=== PATIENT | male | born 1950 | race Two or more races ===

== ENCOUNTER 2019-08-05 11:37 | Inpatient (IN) | payer MEDICARE ==
[~2019-08-05] VITALS: Ht 170.2 cm; Wt 79.8 kg
--- NOTE | 2019-08-05 11:40 | NUR ---
ED Nurse Note: Patient brought into ED from [facility] due to elevated liver enzyme. patient is alert awake, on a ventilator, RT called. primary doctor Dr. Awan sent patient to ED for evaluation. patient on a hospital gown. on a threat monitoring analyst.
[2019-08-05] MEDS ORDERED: LISINOPRIL20 MG GT (12:06)
[2019-08-05] MEDS ORDERED: ALBUTEROL2.5 MG/3 M INH (12:06)
[2019-08-05] MEDS ORDERED: CALCIUM + VITA1 EAC1 GT (12:06)
[2019-08-05] MEDS ORDERED: COLACE100 MG GT (12:06)
[2019-08-05] MEDS ORDERED: FAMOTIDINE20 MG GT (12:06)
[2019-08-05] MEDS ORDERED: LABETALOL HCL100 MG GT (12:06)
[2019-08-05] MEDS ORDERED: MULTIVITAMINS1 EAC8 GT (12:06)
[2019-08-05] MEDS ORDERED: LEVETIRACE100 MG/1 M GT (12:06)
[2019-08-05] MEDS ORDERED: DOXAZOSIN MESYLA1 MG GT (12:06)
[2019-08-05] MEDS ORDERED: AMLODIPINE BESYL5 MG GT (12:06)
[2019-08-05 12:07] VITALS: BP 115/65
--- NOTE | 2019-08-05 12:38 | NUR ---
ED Nurse Note: blood and urine sent to lab
[2019-08-05 13:02] LABS: ANION GAP 7 mmol/L (5-15); BLOOD UREA NITROGEN 14 mg/dL (7-18); CALCIUM 9.3 MG/DL (8.5-10.1); CARBON DIOXIDE 30 MMOL/L (21-32); CHLORIDE 107 MMOL/L (98-107); CREATININE 0.9 MG/DL (0.55-1.30); POTASSIUM 3.6 MMOL/L (3.5-5.1); SODIUM 144 MMOL/L (136-145)
[2019-08-05 13:05] LABS: APPEARANCE,URINE SLIGHTLY CLOUDY; BASOPHILS % (AUTO) 1.5 % (0.0-2.0); BILIRUBIN, URINE NEGATIVE (NEGATIVE); COLOR,URINE PALE YELLOW; EOSINOPHILS % (AUTO) 3.8 % (0.0-3.0); GLUCOSE, URINE (UA) NEGATIVE (NEGATIVE); HEMATOCRIT 36.7 % (42.0-52.0); KETONES,URINE NEGATIVE (NEGATIVE); LEUKOCYTE ESTERASE ,URINE 3+ (NEGATIVE); MEAN CORPUSCULAR VOLUME 91 FL (80-99); MONOCYTES % (AUTO) 10.9 % (1.0-10.0); NEUTROPHILS % (AUTO) 58.9 % (45.0-75.0); NITRITE,URINE NEGATIVE (NEGATIVE); PH,URINE 7 (4.5-8.0); PLATELET COUNT 263 K/UL (150-450); PROTEIN,URINE 2+ (NEGATIVE); RED BLOOD COUNT 4.04 M/UL (4.70-6.10); RED CELL DISTRIBUTION WIDTH 11.2 % (11.6-14.8); UROBILINOGEN,URINE NORMAL MG/DL (0.0-1.0); WHITE BLOOD COUNT 5.5 K/UL (4.8-10.8)
[2019-08-05 13:06] LABS: ALANINE AMINOTRANSFERASE 39 U/L (12-78); ALBUMIN 3.5 G/DL (3.4-5.0); ALBUMIN/GLOBULIN RATIO 0.7 (1.0-2.7); ALKALINE PHOSPHATASE 110 U/L (46-116); ASPARTATE AMINO TRANSFERASE 20 U/L (15-37); BILIRUBIN,TOTAL 0.5 MG/DL (0.2-1.0)
[2019-08-05] MEDS ORDERED: cefTRIAXone 1 GM in NS 55 ML IVPB ONE (13:30)
--- NOTE | 2019-08-05 13:52 | Diagnostic Imaging Report ---
Indication: Dyspnea Comparison: None A single view chest radiograph was obtained. Findings: There is infiltrate versus atelectasis at the left lung base silhouetting out the left hemidiaphragm. There is atelectasis at the right lung base. Pulmonary vascular prominence noted. Tracheostomy is demonstrated. Bones are osteopenic. Interposition of the hepatic flexure between the liver and diaphragm noted. IMPRESSION: Parenchymal disease at the left lung base likely infiltrate or atelectasis. Correlate clinically. Mild pulmonary vascular congestion Mild basal atelectasis Chilaiditi syndrome Osteoporosis Tracheostomy
--- NOTE | 2019-08-05 14:00 | Emergency Room Report ---
History of Present Illness General Chief Complaint: Abnormal Labs Source: Medical Record, EMS Present Illness HPI Patient is is a 69-year-old male brought in by EMS after increased abnormal labs. Patient was sent in for possible fatty liver as well as abnormal liver disease. History is markedly limited by patient's mental status and ventilator dependence. He had previous tracheostomy as well as G-tube. History is obtained from the patient's chart. Allergies: Coded Allergies: No Known Allergies (Unverified , 08/05/19) Patient History Past Medical History: see triage record Past Surgical History: other - Tracheostomy, G-tube Reviewed Nursing Documentation: PMH: Agreed; PSxH: Agreed Nursing Documentation-PMH Past Medical History: No History, Except For Hx Cardiac Problems: No - respiratory failure, encephalopathy, kidney failure, GERD Hx Hypertension: Yes Review of Systems All Other Systems: limited - Poor historian Physical Exam Vital Signs Date Time Temp Pulse Resp B/P (MAP) Pulse Ox O2 Delivery O2 Flow Rate FiO2 08/05/19 11:33 98.1 59 22 130/72 (91) 99 Mechanical Ventilator 08/05/19 11:45 30 Sp02 EP Interpretation: reviewed, normal General Appearance: normal inspection, alert, Chronically Ill Head: atraumatic ENT: normal voice, other - Tracheostomy in place Neck: normal inspection, full range of motion, supple, no bony tend Respiratory: normal inspection, lungs clear, normal breath sounds, no respiratory distress, no retraction, no wheezing Cardiovascular #1: regular rate, rhythm, no edema Gastrointestinal: normal inspection, normal bowel sounds, non tender, soft, no guarding, no hernia Genitourinary: no CVA tenderness Musculoskeletal: normal inspection, back normal, normal range of motion Neurologic: alert, director visual III-XII nml as tested, responsive, other - Tracks with eyes Psychiatric: normal inspection, judgement/insight normal, mood/affect normal Skin: no rash Medical Decision Making ER Course Patient presented for abnormal laboratory testing.Differential diagnosis include was not limited to laboratory error, sepsis, bili obstruction, gallstones among others. Because of complexity of patient's case laboratory tests and imaging studies were ordered. Patient's initial laboratory testing did not show any evidence of continued liver function test abnormalities. He was noted to have some urinary infection on laboratory testing. Patient was discussed with who requested the patient be admitted due to a urinary infection and need for further evaluation of abnormal liver tests. Last Vital Signs Date Time Temp Pulse Resp B/P (MAP) Pulse Ox O2 Delivery O2 Flow Rate FiO2 08/05/19 13:08 65 18 30 08/05/19 12:07 98.1 115/65 100 Mechanical Ventilator Status: unchanged Disposition: ADMITTED INPATIENT Condition: Stable Referrals: Dante Awan MD (PCP) George Escobar MD Aug 05, 2019 14:00
--- NOTE | 2019-08-05 15:32 | NUR ---
NURSE NOTES: RECEIVED TELEPHONE REPORT FROM RAMON MENDIETA STAFF OF ED.PT IS 77 YEARS OLD ,NON-VERBAL TRACH TO VENT ,CAME FROM [facility].PT ADMITTED WITH DX OF UTI. A WAITING FOR THE PT COME AT [facility] ROOM 239 BED 2.PLACED A TELEPHONE CALL TO DR COLIN AND LEFT A MESSAGE ON HIS EMERGENCY VOICE MAIL REGARDING PT IS ON HIS WAY TO [facility]. A WAITING FOR M.D TO CALL ME BACK.
--- NOTE | 2019-08-05 15:32 | NUR ---
ED Nurse Note: report given to Ali RN, endorsed all plan of care to Ali RN.
[2019-08-05 15:33] VITALS: BP 117/71
--- NOTE | 2019-08-05 16:00 | NUR ---
ED Nurse Note: patient transferred to 2W with all of his belongings on ACLS protocol with ANAM BUTTS.
[2019-08-05 16:46] VITALS: BP 151/90
[2019-08-05] MEDS ORDERED: Albuterol ud Inhalation HHN PRN (19:00)
--- NOTE | 2019-08-05 19:20 | NUR ---
HAND-OFF: Report given to .KATE MENDIETA
--- NOTE | 2019-08-05 19:40 | NUR ---
NURSE NOTES: Received pt from ANAM Brumfield. pt is observed in bed, eyes open, able to follow commands. denies pain at this time. trach to vent settings are as follows: Portex: 8, AC: 14, TV: 500, FiO2: 30%, PEEP: 5; tolerating well, no s/sx of respiratory distress noted at this time. G-tube site is patent and intact, clamped at this time. HOB elevated to 45 degrees. condom catheter applied to pt, draining light kristy urine. RW 20 g IV site is patent and intact, asymptomatic. bed in lowest position and locked, padded siderails up X3, call light within reach. will continue to monitor.
[2019-08-05 20:00] VITALS: BP 128/68
[2019-08-05] MEDS: levETIRAcetam 500mg/5ml Liquid GT SCH (20:37)
--- NOTE | 2019-08-05 22:19 | NUR ---
NURSE NOTES: pt's family at bedside at this time. repositioned pt, tolerated well. bilateral heels elevated with pillow support. attempted oral care, noted pt's upper and lower teeth are loose. G-tube feeding increased to 30 cc/hr as no residual noted at this time. will continue to monitor.
[2019-08-06] VITALS: BP 104/63
--- NOTE | 2019-08-06 00:30 | History and Physical Report ---
DATE OF ADMISSION: 08/05/2019 HISTORY OF PRESENT ILLNESS: The patient admitted for urinary tract infection. The patient is vent dependent. Unable to get good history from him. The patient is status post trach and PEG. Also, has elevated LFTs at the [facility]. The patient was admitted for urinary tract infection. Unable to obtain further history. PAST MEDICAL HISTORY: Respiratory insufficiency, vent dependent, constipation, BPH, GERD, hypertension, seizure disorder. PAST SURGICAL HISTORY: Trach and PEG. MEDICATIONS: Doxazosin, Colace, labetalol, lisinopril, Keppra, multivitamin, breathing treatment. ALLERGIES: No known drug allergies. FAMILY HISTORY: Not able to obtain. SOCIAL HISTORY: No history of smoking, alcohol, or illicit drugs. Comes from subacute center. REVIEW OF SYSTEMS: Unable to obtain. PHYSICAL EXAMINATION: VITAL SIGNS: Temperature is 96.4, pulse 88, blood pressure 151/90. HEENT: PERRLA. NECK: Supple. No lymphadenopathy. CHEST: Clear to auscultation. CARDIOVASCULAR: Regular rate and rhythm. No murmurs or extra sounds. GASTROINTESTINAL: Soft. Positive bowel sounds. No organomegaly. G-tube site intact. EXTREMITIES: Has 1+ edema. NEUROLOGIC: Generalized weakness. Reflexes equal on both sides. LABORATORY DATA: WBC of 5.5, hemoglobin 13, platelets 263. Sodium 144, potassium 3.6, BUN of 14, creatinine 0.9, glucose of 89. ASSESSMENT AND PLAN: 1. Urinary tract infection. 2. tracheostomy. I have asked Dr. Con Huff to see the patient. I have asked Dr. Barros to see the patient for pulmonary consult, otherwise per Dr. Con Huff. Dante Awan M.D. DR: Alessandro JOB#: [id number] CC:
[2019-08-06 04:00] VITALS: BP 107/65
[2019-08-06 04:55] LABS: HEMATOCRIT 33.8 % (42.0-52.0); HEMOGLOBIN 12.1 G/DL (14.2-18.0); LYMPHOCYTES % (AUTO) 26.3 % (20.0-45.0); MEAN CORPUSCULAR VOLUME 90 FL (80-99); MONOCYTES % (AUTO) 12.1 % (1.0-10.0); NEUTROPHILS % (AUTO) 56.6 % (45.0-75.0); PLATELET COUNT 225 K/UL (150-450); RED BLOOD COUNT 3.74 M/UL (4.70-6.10); RED CELL DISTRIBUTION WIDTH 11.2 % (11.6-14.8); WHITE BLOOD COUNT 5.6 K/UL (4.8-10.8)
[2019-08-06 05:09] LABS: ANION GAP 8 mmol/L (5-15); BLOOD UREA NITROGEN 17 mg/dL (7-18); CALCIUM 8.9 MG/DL (8.5-10.1); CARBON DIOXIDE 29 MMOL/L (21-32); CHLORIDE 108 MMOL/L (98-107); POTASSIUM 3.3 MMOL/L (3.5-5.1); SODIUM 145 MMOL/L (136-145)
--- NOTE | 2019-08-06 06:55 | NUR ---
NURSE NOTES: called and left message for Dr. Awan regarding pt's potassium level of 3.3. awaiting call back.
--- NOTE | 2019-08-06 07:00 | NUR ---
NURSE NOTES: received call back from Dr. Awan with new orders. will carry out.
--- NOTE | 2019-08-06 07:10 | NUR ---
NURSE NOTES: RECEIVED BED SIDE REPORT FROM KATE MENDIETA.RECEIVED PT WITH HOB ELEVATED 45 DEGREE AWAKE AND ALERT ABLE TO FALLOWS SIMPLE COMMANDS IN BULGARIAN.PT NON-VERBAL,TRACH TO VENT DEPENDENT.TOLERATING WELL CURRENTS VENTS SETTINGS,RENDERED TRACH CARE AND ORAL HYGIENE,LG AMT OF YELLOWISH AND WHITISH COLOR NOTED. PT WITH GT PATENT AND INTACT, RECEIVING JEVITY 1.5 @ 45CC/HRS,NO RESIDUAL NOTED AT THIS TIME.PT WITH COLUMBA CATH IN PLACE DRAINING WELL YELLOW URINE COLOR .PT REPOSITIONED IN BED TO PROVIDE COMFORT AND TO PREVENT SKIN BREAK DOWN. NO ACUTE RESP DISTRESS NOTED AT THIS TIME. WILL CONT TO MONITOR.
--- NOTE | 2019-08-06 07:15 | NUR ---
HAND-OFF: Report given to ANAM Brumfield. pt in stable condition. endorsed plan of care.
[2019-08-06 08:00] VITALS: BP 113/74
[2019-08-06] MEDS: Docusate 100mg/10ml Liq GT SCH (08:57)
[2019-08-06] MEDS: levETIRAcetam 500mg/5ml Liquid GT SCH ×2 (08:58→20:07)
[2019-08-06] MEDS: Multivitamins W/Minerals 15 ML UDC GT SCH (08:58)
[2019-08-06] MEDS: Lisinopril 20mg tab GT SCH (08:59)
[2019-08-06] MEDS: Doxazosin 1mg Tab GT SCH (09:07)
--- NOTE | 2019-08-06 10:52 | NUR ---
RD ASSESSMENT & RECOMMENDATIONS SEE CARE ACTIVITY FOR COMPLETE ASSESSMENT DAILY ESTIMATED NEEDS: Needs based on Critical care 70.5kg adj 22-28 kcals/kg 2124-5074 total kcals 1.2-2 g protein/kg 85-141 g total protein 25-30 mL/kg 6665-9305 total fluid mLs NUTRITION DIAGNOSIS: Swallowing difficulty r/t resp status as evidenced by pt is vent dep via trach, PEG dep. (CURRENT TF: Jevity 1.2 @45ml/hr) ENTERAL NUTRITION RECOMMENDATIONS: REC TO INCREASE CURRENT FEED TO -> Jevity 1.2 @60ml/hr x24 hrs to provide 1440ml, 1728 kcal, 80g pro, 1162ml free H2O - As tolerated rec to increase current to TF to goal of 60ml/hr x24 hrs - Add PROSOURCE 1 PACK DAILY (11g pro) to better meet est pro needs. - Flush per MD. HOB over 30 degrees ADDITIONAL RECOMMENDATIONS: 1) Monitor BG w/ increased TF rate 2) Lytes daily, replete as needed 3) Maintain calibrated bed scale wts for TF efficacy
--- NOTE | 2019-08-06 11:15 | Diagnostic Imaging Report ---
Indication: Abdominal pain Technique: Grayscale and duplex Doppler imaging of the abdomen performed. Comparison: None Findings: Study is significantly limited by bowel gas and a large body habitus as well as bandages associated with the gastrostomy tube. Liver is grossly unremarkable. CBD measures 3.5 mm. There are no gallstones identified. There is no hydronephrosis or ascites. Spleen is normal in size. The pancreas aorta portions of the kidneys are not evaluated well. The left lobe of the liver is not evaluated well. The main portal vein appears patent by Doppler examination. There are cysts within the right kidney. These are small measuring less than 1 cm. IMPRESSION: No acute findings appreciated. Very limited study
[2019-08-06 12:00] VITALS: BP 102/54
--- NOTE | 2019-08-06 12:54 | NUR ---
PATCHER HELPERAIR FORCE PILOT 69 YO MALE BIBA FROM [facility] TO ER CC ABNORMAL LABS ELEVATED LIVER ENZYMES SI: RESP FAILURE TRACH/VENT DEPENDENT,UTI T. 98.1 HR 59 RR 22 B/P 130/72 AC 14 TV 500 FIO2 30% PEEP 5 UA+ PROTEIN,BLOOD,LEUKOCYTE ESTERASE,RBC,BACTERIA CXR=Parenchymal disease at the left lung base likely infiltrate or atelectasis. Correlate clinically. ABD/PEL= NO ACUTE PROCESS IS: ROCEPHIN IV ADMITTED TO STEP DOWN@1600 STEP DOWN STATUS DCP RETURN TO [facility]
[2019-08-06] MEDS: cefTRIAXone 2 GM in D5W 55 ML IVPB SCH (14:02)
--- NOTE | 2019-08-06 15:18 | NUR ---
NURSE NOTES:WOUND CARE NOTES:Pt presented on admission with contractures.Pungent red rash noted to L antecubital . Skin is erythematous, moist and macerated. Scattered areas of hyperpigmentation from previous wounds noted to sacrum and buttocks. Both heels are blanchable and pink. No other Skin Concerns noted. Tx.Plan: Cleanse and dry L Antecubital. Apply Light dusting of Phytoplex Antifungal Powder Twice Daily and prn. Apply Moisture Barrier Paste to buttocks. Cover Sacrum with Optifoam drsg. Change every 3 days and prn. Apply Cavilon Skin Barrier to both heels and Malleoli. Cover each site with Optifoam drsg. Change every 7 days and prn. Reposition at least every 2hours or as tolerated. Off-load heels with pillow.
[2019-08-06 16:00] VITALS: BP 117/65
--- NOTE | 2019-08-06 16:15 | Consultation ---
DATE OF CONSULTATION: 08/06/2019 INFECTIOUS DISEASE CONSULTATION CONSULTING PHYSICIAN: Con Huff M.D. REFERRING PHYSICIAN: Dante Awan M.D. REASON FOR CONSULTATION: UTI. HISTORY OF PRESENT ILLNESS: This is a 69-year-old male, admitted yesterday from a nursing facility because of abnormal labs. The patient has bacteriuria on UA exam. He is not a source of history. PAST MEDICAL HISTORY: Significant for ventilator-dependent respiratory failure, BPH, hypertension, seizure disorder, seems to have history of CVA, and left hemiplegia. PAST SURGICAL HISTORY: Status post tracheostomy and PEG placement. ALLERGIES: The patient has no known allergies. MEDICATIONS: Getting Colace, Cardura, Pepcid, lisinopril, multivitamin, Keppra, albuterol, amlodipine, and labetalol. SOCIAL HISTORY: Single, alf resident. REVIEW OF SYSTEMS: Very limited information can be obtained from the patient. He seems to have pain in the left arm. PHYSICAL EXAMINATION: VITAL SIGNS: Temperature 98, pulse 66, blood pressure 102/54. GENERAL APPEARANCE: No acute distress. HEAD AND NECK: Status post tracheostomy. HEART: Normal rate. LUNGS: Clear on ventilator. ABDOMEN: Soft. G-tube feeding. EXTREMITIES: Has no edema. Have contractures in the left leg. NEUROLOGIC: Awake, responsive. LABORATORY AND DIAGNOSTIC DATA: Sodium 145, potassium 3.3, chloride 108, bicarbonate 29, BUN 17, creatinine 1. WBC 5.6, hemoglobin 12.1, hematocrit 33.8, and platelets is 225,000. UA showed wbc's of 2 to 4, bacteria moderate, leukocyte esterase 3+, protein 2+. Chest x-ray, parenchymal disease at right lung base, likely infiltrate or atelectasis . Abdominal ultrasound, no acute finding. IMPRESSION: Bacteriuria, may have UTI. Have atelectasis or infiltrate in the left lung. fatty liver. Ventilator-dependent respiratory failure, BPH, hypertension, status post CVA. RECOMMENDATION: We will continue ceftriaxone that was given to the patient in the ER. At the end of my exam, I thank Dr. Awan for involving me in the care of this patient. Con Huff M.D. DR: XIN JOB#: [id number] CC: SEBASTIAN
--- NOTE | 2019-08-06 19:24 | NUR ---
HAND-OFF: Report given to .SHERIE MENDIETA
--- NOTE | 2019-08-06 19:35 | NUR ---
NURSE NOTES: Received report from Cristian Balderas, pt. in bed awake- A/O x's2-3- non-verbal, son at bedside, no signs or symptoms of acute cardiac or respiratory distress noted, bed alarm on, side rails up x's 3 and safety brakes engaged, call light within easy reach, pt. appears to be tolerating current vent settings well, AC14, TV500, peep 5 and fio2 at 30%- no distress noted, side rails padded for seizure precautions- no seizure activity noted. G tube running Jevity 1.2 at 45cc/hr- no residual noted, condom cath intact and draining to gravity, pt. appears clean and dry, safety measures continued, will continue with plan of care.
[2019-08-06 20:00] VITALS: BP 103/63
--- NOTE | 2019-08-06 21:15 | Consultation ---
DATE OF CONSULTATION: 08/06/2019 PULMONARY CONSULTATION HISTORY OF PRESENT ILLNESS: The patient is a 69-year-old male transferred from a nursing facility due to findings of abnormal LFTs and fever. The patient unable to provide any history. He is trach and vent dependent. Most of the information reviewed from medical records. PAST MEDICAL HISTORY: Notable for chronic trach and vent dependent, renal insufficiency, gastroesophageal reflux disease. PAST SURGICAL HISTORY: Tracheostomy and G-tube. ALLERGIES: None. REVIEW OF SYSTEMS: Unobtainable. PHYSICAL EXAMINATION: GENERAL: Reveals a 69-year-old male. VITAL SIGNS: Blood pressure 130/70, heart rate 62, respirations are 20, afebrile, O2 saturation 98% on 30% FiO2, assist-control mechanical ventilation. HEENT: Unremarkable. Trach status is clean. CHEST: Clear breath sounds bilaterally. ABDOMEN: Soft. G-tube is noted. EXTREMITIES: There is no edema. LABORATORY AND DIAGNOSTIC DATA: Laboratory testing shows normal CBC with the exception of hemoglobin 12. Potassium 3.3. LFTs are normal on arrival. Imaging studies of abdomen is obtained, which showed normal findings. X-ray chest was also reviewed, which showed patchy infiltrate in left lung base, otherwise normal findings. IMPRESSION: 1. Pneumonia, left lung base. 2. Chronic trach. 3. Chronic vent dependent. DISCUSSION: Admitted to the hospital. The patient has been seen by ID. He has been started on a broad-spectrum antibiotics including Rocephin. We will follow as track template maker. Continue trach and vent. We will adjust vent settings. We will follow carefully. Domingo Barros M.D. DR: Haroon JOB#: [id number] CC:
--- NOTE | 2019-08-06 21:52 | General Progress Note ---
Assessment/Plan Problem List: (1) Abnormal laboratory test result ICD Codes: R89.9 - Unspecified abnormal finding in specimens from other organs , systems and tissues SNOMED: 112998320 (2) UTI (urinary tract infection) ICD Codes: N39.0 - Urinary tract infection, site not specified SNOMED: 28901052 Status: progressing Assessment/Plan: uti is improving dc in am trach Subjective ROS Limited/Unobtainable: Yes Allergies: Coded Allergies: No Known Allergies (Unverified , 08/05/19) Objective Last 24 Hour Vital Signs Date Time Temp Pulse Resp B/P (MAP) Pulse Ox O2 Delivery O2 Flow Rate FiO2 08/06/19 20:00 Mechanical Ventilator 08/06/19 20:00 30 08/06/19 20:00 98.8 73 16 103/63 (76) 98 08/06/19 19:30 73 14 30 08/06/19 18:31 85 117/65 08/06/19 18:31 85 117/65 08/06/19 17:05 85 14 30 08/06/19 16:00 97.7 70 15 117/65 (82) 99 08/06/19 16:00 30 08/06/19 16:00 65 08/06/19 16:00 Mechanical Ventilator 08/06/19 15:21 75 16 30 08/06/19 13:06 78 18 30 08/06/19 12:00 30 08/06/19 12:00 98.0 65 15 102/54 (70) 98 08/06/19 12:00 66 08/06/19 12:00 Mechanical Ventilator 08/06/19 11:15 64 19 30 08/06/19 09:15 67 15 30 08/06/19 09:07 64 113/74 08/06/19 09:07 64 113/74 08/06/19 08:59 113/74 08/06/19 08:00 98.0 64 15 113/74 (87) 100 08/06/19 08:00 Mechanical Ventilator 08/06/19 08:00 30 08/06/19 08:00 58 08/06/19 07:15 66 15 30 08/06/19 05:29 69 14 30 08/06/19 04:00 60 08/06/19 04:00 30 08/06/19 04:00 97.2 62 14 107/65 (79) 100 08/06/19 04:00 Mechanical Ventilator 08/06/19 02:48 79 16 30 08/06/19 00:45 79 17 30 08/06/19 00:00 97.8 72 14 104/63 (77) 100 08/06/19 00:00 68 08/06/19 00:00 Mechanical Ventilator 08/05/19 23:10 77 15 30 Intake and Output 08/05/19 08/06/19 19:00 07:00 Intake Total 50 ml 560 ml Output Total 250 ml Balance 50 ml 310 ml Intake Free Water 50 ml 150 ml Tube Feeding 410 ml Output Urine Total 250 ml # Voids 1 Laboratory Tests 08/06/19 03:50: White Blood Count 5.6, Red Blood Count 3.74L, Hemoglobin 12.1L, Hematocrit 33.8L , Mean Corpuscular Volume 90, Mean Corpuscular Hemoglobin 32.3H, Mean Corpuscular Hemoglobin Concent 35.8, Red Cell Distribution Width 11.2L, Platelet Count 225, Mean Platelet Volume 7.7, Neutrophils (%) (Auto) 56.6, Lymphocytes (%) (Auto) 26.3, Monocytes (%) (Auto) 12.1H, Eosinophils (%) (Auto) 4.0H, Basophils (%) (Auto) 1.0, Sodium Level 145, Potassium Level 3.3L, Chloride Level 108H, Carbon Dioxide Level 29, Anion Gap 8, Blood Urea Nitrogen 17, Creatinine 1.0, Estimat Glomerular Filtration Rate > 60, Glucose Level 112H , Calcium Level 8.9 Height (Feet): 5 Height (Inches): 7.00 Weight (Pounds): 176 Cardiovascular: normal rate Respiratory/Chest: lungs clear Dante Awan MD Aug 06, 2019 21:52
[2019-08-07] VITALS: BP 103/63
[2019-08-07 04:00] VITALS: BP 101/64
[2019-08-07 05:31] LABS: ANION GAP 8 mmol/L (5-15); BLOOD UREA NITROGEN 22 mg/dL (7-18); CALCIUM 8.7 MG/DL (8.5-10.1); CARBON DIOXIDE 28 MMOL/L (21-32); CHLORIDE 109 MMOL/L (98-107); POTASSIUM 3.3 MMOL/L (3.5-5.1); SODIUM 145 MMOL/L (136-145)
--- NOTE | 2019-08-07 06:54 | NUR ---
HAND-OFF: Report given to Cristian Benavides, pt. remains stable and no signs of distress noted- aware to f/u on abnormal am labs- potassium 3.3. Bedside rounding done.
--- NOTE | 2019-08-07 06:54 | NUR ---
NURSE NOTES: Pt received from ANAM Miller in stable condition without cardiopulmonary distress noted. Pt is wake in bed, able to follow commands, trache to vent, Portex 8 AC 14 TV 500 FiO2 30% Peep 5. SR to panel monitor. GT noted running Jevity at 45 cc/hr without gastric residuals. Skin alterations noted. Pt has a RW 20g IV. LH 20g IV started. Bed in lowest position, alarm on, side rails up x 2 and padded per seizure precaution. Call light within reach. Order received from Dr Awan made aware of potassium level today of 3.3 and new orders placed. Will continue to monitor.
[2019-08-07 08:00] VITALS: BP 104/54
[2019-08-07] MEDS: Docusate 100mg/10ml Liq GT SCH ×3 (08:42→17:46)
[2019-08-07] MEDS: Multivitamins W/Minerals 15 ML UDC GT SCH (08:43)
[2019-08-07] MEDS: levETIRAcetam 500mg/5ml Liquid GT SCH ×2 (08:43→20:32)
[2019-08-07] MEDS: Doxazosin 1mg Tab GT SCH (08:43)
--- NOTE | 2019-08-07 09:02 | NUR ---
NURSE NOTES: Dr Awan and Papo made aware of venous duplex results. Order placed for 500 units heparin subcut Q12 HR per Dr Barros. No BP or SCD to left lower extremity per Dr. Barros.
[2019-08-07] MEDS: Heparin 5000 units/ml inj SUBQ SCH ×2 (09:16→20:34)
[2019-08-07] MEDS: Lisinopril 20mg tab GT SCH (09:47)
--- NOTE | 2019-08-07 10:04 | Diagnostic Imaging Report ---
Indication:Leg pain and swelling Technique: Grayscale and duplex Doppler imaging of the veins in both lower extremities performed in real time utilizing compression and augmentation. Comparison: None Findings: Duplex Doppler interrogation of the veins in both lower extremity is performed from the common femoral vein to the popliteal vein. No acute thrombus identified. Waveform analysis shows good respiratory phasicity and augmentation. In the left SFV, there is evidence of nonocclusive mural thrombus, almost certainly chronic. There is normal compressibility demonstrated throughout the remainder of the veins bilaterally. IMPRESSION: No evidence of acute deep venous thrombosis involving the lower extremities. Mild nonocclusive chronic wall adherent thrombus within the left SFV. (Old DVT).
--- NOTE | 2019-08-07 11:57 | Infectious Diseases Prog Note ---
Assessment/Plan Assessment/Plan IMPRESSION: Proteus UTI. Atelectasis or infiltrate in the left lung. fatty liver. Ventilator-dependent respiratory failure, BPH, hypertension, status post CVA. RECOMMENDATION: We will continue ceftriaxone Subjective ROS Limited/Unobtainable: Yes Constitutional: Reports: no symptoms Respiratory: Reports: no symptoms Gastrointestinal/Abdominal: Reports: no symptoms Genitourinary: Reports: no symptoms Allergies: Coded Allergies: No Known Allergies (Unverified , 08/05/19) Objective Vital Signs Last 24 Hour Vital Signs Date Time Temp Pulse Resp B/P (MAP) Pulse Ox O2 Delivery O2 Flow Rate FiO2 08/07/19 11:14 66 22 30 08/07/19 09:47 96/58 08/07/19 09:14 62 16 30 08/07/19 08:43 63 104/54 08/07/19 08:43 63 104/54 08/07/19 08:00 30 08/07/19 08:00 63 08/07/19 08:00 97.3 68 16 104/54 (71) 98 08/07/19 08:00 T-piece T-piece 08/07/19 07:15 68 15 30 08/07/19 05:04 70 14 30 08/07/19 04:00 30 08/07/19 04:00 98.6 79 16 101/64 (76) 100 08/07/19 04:00 Mechanical Ventilator 08/07/19 03:43 63 08/07/19 02:59 63 14 30 08/07/19 01:20 64 14 30 08/07/19 00:00 Mechanical Ventilator 08/07/19 00:00 30 08/07/19 00:00 98.8 73 16 103/63 (76) 98 08/06/19 23:43 77 16 30 08/06/19 23:35 85 08/06/19 21:08 72 16 30 08/06/19 20:00 Mechanical Ventilator 08/06/19 20:00 30 08/06/19 20:00 98.8 73 16 103/63 (76) 98 08/06/19 19:39 76 08/06/19 19:30 73 14 30 08/06/19 18:31 85 117/65 08/06/19 18:31 85 117/65 08/06/19 17:05 85 14 30 08/06/19 16:00 97.7 70 15 117/65 (82) 99 08/06/19 16:00 30 08/06/19 16:00 65 08/06/19 16:00 Mechanical Ventilator 08/06/19 15:21 75 16 30 08/06/19 13:06 78 18 30 08/06/19 12:00 30 08/06/19 12:00 98.0 65 15 102/54 (70) 98 08/06/19 12:00 66 08/06/19 12:00 Mechanical Ventilator Height (Feet): 5 Height (Inches): 7.00 Weight (Pounds): 176 General Appearance: no acute distress HEENT: status post trach Respiratory/Chest: lungs clear, other - on ventilator Cardiovascular: normal rate Abdomen: soft, non tender, other - GT feeding Extremities: no edema Neurologic/Psychiatric: alert, responsive, other - left hemiplegia Microbiology Date/Time Source Procedure Growth Status 08/05/19 14:42 Nasal Nares MRSA Culture - Final NO METHICILLIN RESISTANT STAPH AUREUS... Complete 08/05/19 12:24 Urine,Clean Catch Urine Culture - Final Proteus Mirabilis Complete 08/05/19 14:42 Rectum VRE Culture - Final NO VANCOMYCIN RESISTANT ENTEROCOCCUS ... Complete Laboratory Tests Test 08/07/19 04:10 Sodium Level 145 MMOL/L (136-145) Potassium Level 3.3 MMOL/L (3.5-5.1) L Chloride Level 109 MMOL/L (98-107) H Carbon Dioxide Level 28 MMOL/L (21-32) Anion Gap 8 mmol/L (5-15) Blood Urea Nitrogen 22 mg/dL (7-18) H Creatinine 1.0 MG/DL (0.55-1.30) Estimat Glomerular Filtration Rate > 60 mL/min (>60) Glucose Level 119 MG/DL (74-106) H Calcium Level 8.7 MG/DL (8.5-10.1) Current Medications Medications (Trade) Dose Ordered Sig/Scott Route PRN Reason Start Time Stop Time Status Last Admin Dose Admin Albuterol Sulfate (Proventil) 2.5 mg Q6H PRN HHN Shortness of Breath 08/05/19 19:00 08/10/19 18:59 Amlodipine Besylate (Norvasc) 5 mg TWICE A DAY GT 08/05/19 19:00 09/04/19 18:59 08/07/19 08:43 Ceftriaxone Sodium 2 gm/ Dextrose 55 ml @ 110 mls/hr Q24H IVPB 08/06/19 13:00 08/13/19 12:59 08/06/19 14:02 Docusate Sodium (Colace) 100 mg DAILY GT 08/06/19 09:00 09/05/19 08:59 08/07/19 08:42 Doxazosin Mesylate (Cardura) 1 mg DAILY GT 08/06/19 09:00 09/05/19 08:59 08/07/19 08:43 Famotidine (Pepcid) 20 mg DAILY GT 08/06/19 09:00 09/05/19 08:59 08/07/19 08:43 Heparin Sodium (Porcine) (Heparin 5000 units/ml) 5,000 units EVERY 12 HOURS SUBQ 08/07/19 09:30 09/06/19 09:29 08/07/19 09:16 Labetalol HCl (Normodyne) 100 mg TWICE A DAY GT 08/05/19 19:00 09/04/19 18:59 08/07/19 08:43 Levetiracetam (Keppra) 500 mg EVERY 12 HOURS GT 08/05/19 21:00 09/04/19 20:59 08/07/19 08:43 Lisinopril (PriniviL) 20 mg DAILY GT 08/06/19 09:00 09/05/19 08:59 08/06/19 08:59 Multivitamins (Multivitamins W/ Minerals 15ml Liquid) 15 ml DAILY GT 08/06/19 09:00 09/05/19 08:59 08/07/19 08:43 Con Huff MD Aug 07, 2019 11:57
[2019-08-07 12:00] VITALS: BP 98/41
--- NOTE | 2019-08-07 12:00 | NUR ---
NURSE NOTES: Pt cleaned and repositioned, oral care provided and pt suctioned. No acute distress noted.
--- NOTE | 2019-08-07 12:10 | Consultation ---
Consult Note Consult Note asked to eval at the request of Dr Frausto for flyuid and abnormal electrolyte management Patient has Trach and left side paralysis ER Patient is is a 69-year-old male brought in by EMS after increased abnormal labs. Patient was sent in for possible fatty liver as well as abnormal liver disease. No Known Allergies (Unverified , 08/05/19) Past Medical History: No History, Except For Hx Cardiac Problems: No - respiratory failure, encephalopathy, kidney failure, GERD Hx Hypertension: Yes examined data reviewed Assessment/Plan HypoKalemia UTO Pneumonia left lung chronic trach- Vent left dense chriss BP low Adjust BP meds- K supplement monitor lytes IV hydrateand bolus per orders Ayush Chung MD Aug 07, 2019 12:10
--- NOTE | 2019-08-07 12:34 | Pulmonology Progress Note ---
Assessment/Plan Assessment/Plan IMPRESSION: 1. Pneumonia, left lung base. 2. Chronic trach. 3. Chronic vent dependent. DISCUSSION: Continue broad-spectrum antibiotics including Rocephin. 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 Continue trach and vent. I will adjust vent settings as needed. Domingo Barros M.D. Subjective Interval Events: None new; remains on trach/vent Constitutional: Reports: no symptoms HEENT: Repors: no symptoms Respiratory: Reports: no symptoms Cardiovascular: Reports: no symptoms Gastrointestinal/Abdominal: Reports: no symptoms Allergies: Coded Allergies: No Known Allergies (Unverified , 08/05/19) Objective Last 24 Hour Vital Signs Date Time Temp Pulse Resp B/P (MAP) Pulse Ox O2 Delivery O2 Flow Rate FiO2 08/07/19 12:00 30 08/07/19 11:14 66 22 30 08/07/19 09:47 96/58 08/07/19 09:14 62 16 30 08/07/19 08:43 63 104/54 08/07/19 08:43 63 104/54 08/07/19 08:00 30 08/07/19 08:00 63 08/07/19 08:00 97.3 68 16 104/54 (71) 98 08/07/19 08:00 T-piece T-piece 08/07/19 07:15 68 15 30 08/07/19 05:04 70 14 30 08/07/19 04:00 30 08/07/19 04:00 98.6 79 16 101/64 (76) 100 08/07/19 04:00 Mechanical Ventilator 08/07/19 03:43 63 08/07/19 02:59 63 14 30 08/07/19 01:20 64 14 30 08/07/19 00:00 Mechanical Ventilator 08/07/19 00:00 30 08/07/19 00:00 98.8 73 16 103/63 (76) 98 08/06/19 23:43 77 16 30 08/06/19 23:35 85 08/06/19 21:08 72 16 30 08/06/19 20:00 Mechanical Ventilator 08/06/19 20:00 30 08/06/19 20:00 98.8 73 16 103/63 (76) 98 08/06/19 19:39 76 08/06/19 19:30 73 14 30 08/06/19 18:31 85 117/65 08/06/19 18:31 85 117/65 08/06/19 17:05 85 14 30 08/06/19 16:00 97.7 70 15 117/65 (82) 99 08/06/19 16:00 30 08/06/19 16:00 65 08/06/19 16:00 Mechanical Ventilator 08/06/19 15:21 75 16 30 08/06/19 13:06 78 18 30 Intake and Output 08/06/19 08/07/19 19:00 07:00 Intake Total 790 ml 590 ml Output Total 150 ml 100 ml Balance 640 ml 490 ml Intake Free Water 250 ml 50 ml Tube Feeding 540 ml 540 ml Output Urine Total 150 ml 100 ml # Voids 1 2 General Appearance: no acute distress HEENT: normocephalic Respiratory/Chest: chest wall non-tender Cardiovascular: normal peripheral pulses, normal rate Abdomen: normal bowel sounds Microbiology Date/Time Source Procedure Growth Status 08/05/19 14:42 Nasal Nares MRSA Culture - Final NO METHICILLIN RESISTANT STAPH AUREUS... Complete 08/05/19 12:24 Urine,Clean Catch Urine Culture - Final Proteus Mirabilis Complete 08/05/19 14:42 Rectum VRE Culture - Final NO VANCOMYCIN RESISTANT ENTEROCOCCUS ... Complete Laboratory Tests 08/07/19 04:10: Sodium Level 145, Potassium Level 3.3L, Chloride Level 109H, Carbon Dioxide Level 28, Anion Gap 8, Blood Urea Nitrogen 22H, Creatinine 1.0, Estimat Glomerular Filtration Rate > 60, Glucose Level 119H, Calcium Level 8.7 Current Medications Medications (Trade) Dose Ordered Sig/Scott Route PRN Reason Start Time Stop Time Status Last Admin Dose Admin Albuterol Sulfate (Proventil) 2.5 mg Q6H PRN HHN Shortness of Breath 08/05/19 19:00 08/10/19 18:59 Amlodipine Besylate (Norvasc) 2.5 mg DAILY GT 08/08/19 09:00 09/04/19 18:59 Carvedilol (Coreg) 3.125 mg EVERY 12 HOURS GT 08/08/19 09:00 09/07/19 08:59 Ceftriaxone Sodium 2 gm/ Dextrose 55 ml @ 110 mls/hr Q24H IVPB 08/06/19 13:00 08/13/19 12:59 08/06/19 14:02 Dextrose/ Electrolytes 1,000 ml @ 50 mls/hr Q20H IV 08/07/19 13:00 09/06/19 12:59 Docusate Sodium (Colace) 100 mg TID GT 08/07/19 13:00 09/05/19 08:59 Famotidine (Pepcid) 20 mg BID GT 08/07/19 18:00 09/05/19 08:59 Heparin Sodium (Porcine) (Heparin 5000 units/ml) 5,000 units EVERY 12 HOURS SUBQ 08/07/19 09:30 09/06/19 09:29 08/07/19 09:16 Levetiracetam (Keppra) 500 mg EVERY 12 HOURS GT 08/05/19 21:00 09/04/19 20:59 08/07/19 08:43 Lisinopril (PriniviL) 20 mg DAILY GT 08/08/19 09:00 09/05/19 08:59 Multivitamins (Multivitamins W/ Minerals 15ml Liquid) 15 ml DAILY GT 08/06/19 09:00 09/05/19 08:59 08/07/19 08:43 Sodium Chloride 500 ml @ 999 mls/hr Q31M ONCE IV 08/07/19 12:30 08/07/19 13:00 Domingo Barros MD Aug 07, 2019 12:34
[2019-08-07] MEDS: cefTRIAXone 2 GM in D5W 55 ML IVPB SCH (12:45)
[2019-08-07] MEDS: D5 1/2NS w/KCL 10meq 1,000 ML IV SCH (13:31)
--- NOTE | 2019-08-07 15:16 | NUR ---
[employer]IST SI: RESP FAILURE TRACH/VENT DEPENDENT, UTI T. 98.1 HR 73 RR 20 B/P 98/41 AC 14 TV 500 FIO2 30% PEEP 5 K 3.3 BUN 22 IS: IVF D5KCL @ 50ML/HR ROCEPHIN IV HEPARIN SUBC STEP DOWN STATUS
[2019-08-07 16:00] VITALS: BP 101/64
--- NOTE | 2019-08-07 16:00 | NUR ---
NURSE NOTES: Oral care provided, no acute distress noted.
[2019-08-07] MEDS ORDERED: NS 275ml ONE (18:37)
--- NOTE | 2019-08-07 19:24 | NUR ---
HAND-OFF: Report given to So ANAM Koehler. Pt in stable condition.
--- NOTE | 2019-08-07 19:25 | NUR ---
NURSE NOTES: received pt from Makayla MENDIETA., pt is awake and AOx1 at this moment. pt seems comfortable and no s/s of pain. no SOB noted. pt is on portex 8 AC 14 TV 500 Fio2 30% P5. Gtube is intact, clean, and patent. condom cath is in right place, no licking noted Left Hand 24 Hand D5 1/2NS 10Meq is running at 50cc/hr, no s/s of infection or infiltration. bed at the lowest position, alarmed, and locked. call light within reach. will continue to monitor pt with plan of care.
[2019-08-07 20:00] VITALS: BP 96/36
--- NOTE | 2019-08-07 21:14 | General Progress Note ---
Assessment/Plan Problem List: (1) Abnormal laboratory test result ICD Codes: R89.9 - Unspecified abnormal finding in specimens from other organs , systems and tissues SNOMED: 313243173 (2) UTI (urinary tract infection) ICD Codes: N39.0 - Urinary tract infection, site not specified SNOMED: 74565858 Status: progressing Assessment/Plan: uti is improving has dvt anticoagulant afebrile moniter for bleeding trach Subjective ROS Limited/Unobtainable: Yes Allergies: Coded Allergies: No Known Allergies (Unverified , 08/05/19) Objective Last 24 Hour Vital Signs Date Time Temp Pulse Resp B/P (MAP) Pulse Ox O2 Delivery O2 Flow Rate FiO2 08/07/19 20:36 71 19 30 08/07/19 20:00 97.7 65 20 96/36 (56) 100 08/07/19 20:00 30 08/07/19 20:00 T-piece T-piece 08/07/19 18:46 67 18 30 08/07/19 16:53 78 19 30 08/07/19 16:00 T-piece T-piece 08/07/19 16:00 30 08/07/19 16:00 97.5 65 22 101/64 (76) 100 08/07/19 16:00 61 08/07/19 15:25 72 14 30 08/07/19 13:00 78 20 30 08/07/19 12:00 T-piece T-piece 08/07/19 12:00 30 08/07/19 12:00 98.1 77 20 98/41 (60) 97 08/07/19 11:26 65 08/07/19 11:14 66 22 30 08/07/19 09:47 96/58 08/07/19 09:14 62 16 30 08/07/19 08:43 63 104/54 08/07/19 08:43 63 104/54 08/07/19 08:00 30 08/07/19 08:00 63 08/07/19 08:00 97.3 68 16 104/54 (71) 98 08/07/19 08:00 T-piece T-piece 08/07/19 07:15 68 15 30 08/07/19 05:04 70 14 30 08/07/19 04:00 30 08/07/19 04:00 98.6 79 16 101/64 (76) 100 08/07/19 04:00 Mechanical Ventilator 08/07/19 03:43 63 08/07/19 02:59 63 14 30 08/07/19 01:20 64 14 30 08/07/19 00:00 Mechanical Ventilator 08/07/19 00:00 30 08/07/19 00:00 98.8 73 16 103/63 (76) 98 08/06/19 23:43 77 16 30 08/06/19 23:35 85 Intake and Output 08/06/19 08/07/19 19:00 07:00 Intake Total 790 ml 590 ml Output Total 150 ml 100 ml Balance 640 ml 490 ml Intake Free Water 250 ml 50 ml Tube Feeding 540 ml 540 ml Output Urine Total 150 ml 100 ml # Voids 1 2 Laboratory Tests 08/07/19 04:10: Sodium Level 145, Potassium Level 3.3L, Chloride Level 109H, Carbon Dioxide Level 28, Anion Gap 8, Blood Urea Nitrogen 22H, Creatinine 1.0, Estimat Glomerular Filtration Rate > 60, Glucose Level 119H, Calcium Level 8.7 Height (Feet): 5 Height (Inches): 7.00 Weight (Pounds): 176 General Appearance: confused Cardiovascular: regular rhythm Respiratory/Chest: normal breath sounds Dante Awan MD Aug 07, 2019 21:14
[2019-08-08] VITALS: BP 114/65
[2019-08-08 04:00] VITALS: BP 111/60
--- NOTE | 2019-08-08 04:05 | NUR ---
NURSE NOTES: applied new condom cath, pt is not cooperative to care and staffs.
--- NOTE | 2019-08-08 04:10 | NUR ---
NURSE NOTES: cleaned partial bed for the pt, changed to new gown, provided oral care. changed position Q2HRS. pt shows no s/s of SOB. pt states no pain at this moment. call light within reach.
[2019-08-08 05:53] LABS: BASOPHILS % (AUTO) 1.7 % (0.0-2.0); EOSINOPHILS % (AUTO) 4.8 % (0.0-3.0); HEMATOCRIT 30.6 % (42.0-52.0); HEMOGLOBIN 10.7 G/DL (14.2-18.0); MEAN CORPUSCULAR VOLUME 93 FL (80-99); MONOCYTES % (AUTO) 12.6 % (1.0-10.0); NEUTROPHILS % (AUTO) 50.9 % (45.0-75.0); PLATELET COUNT 209 K/UL (150-450); RED CELL DISTRIBUTION WIDTH 11.4 % (11.6-14.8); WHITE BLOOD COUNT 4.4 K/UL (4.8-10.8)
[2019-08-08 06:31] LABS: ALANINE AMINOTRANSFERASE 26 U/L (12-78); ALBUMIN 2.7 G/DL (3.4-5.0); ALBUMIN/GLOBULIN RATIO 0.6 (1.0-2.7); ALKALINE PHOSPHATASE 80 U/L (46-116); ANION GAP 7 mmol/L (5-15); ASPARTATE AMINO TRANSFERASE 18 U/L (15-37); BILIRUBIN,TOTAL 0.3 MG/DL (0.2-1.0); BLOOD UREA NITROGEN 20 mg/dL (7-18); CALCIUM 8.6 MG/DL (8.5-10.1); CARBON DIOXIDE 26 MMOL/L (21-32); CHLORIDE 113 MMOL/L (98-107); CHOLESTEROL 88 MG/DL (< 200); CREATININE 0.8 MG/DL (0.55-1.30); FERRITIN 122 NG/ML (8-388); HDL CHOLESTEROL 24 MG/DL (40-60); PHOSPHORUS 2.9 MG/DL (2.5-4.9); POTASSIUM 3.6 MMOL/L (3.5-5.1); SODIUM 146 MMOL/L (136-145); TRIGLYCERIDES 73 MG/DL (30-150)
--- NOTE | 2019-08-08 07:32 | NUR ---
HAND-OFF: Report given to Jayson MENDIETA., pt is stable condition at this moment. endorsed plan of care.
[2019-08-08 07:33] LABS: % IRON SATURATION 49 % (15-50); IRON 104 ug/dL (50-175); TOTAL IRON BINDING CAPACITY 211 ug/dL (250-450)
--- NOTE | 2019-08-08 07:35 | NUR ---
NURSE NOTES: Recieved patient from Nely Koehler RN. patient aox1, nonverbal and laying in bed. Patient is on SR on the equipment monitor phototypesetting. Patient is on mechanical ventilator as ordered and tolerating well. Patient has a Gtube and running Jevity 1.2 at 45 ml/hr and tolerating well.Pt has a L Hand 24g patent and flushing properly. Patient is on D51/2NS 10 mEq at 50 ml/hr. Bed is locked, alarmed and in lowest position. Side rails are padded and call light is within reach. Will continue to monitor.
[2019-08-08 08:00] VITALS: BP 106/58
[2019-08-08] MEDS: Docusate 100mg/10ml Liq GT SCH ×3 (08:48→17:36)
[2019-08-08] MEDS: levETIRAcetam 500mg/5ml Liquid GT SCH ×2 (08:49→21:19)
[2019-08-08] MEDS: D5 1/2NS w/KCL 10meq 1,000 ML IV SCH (08:54)
[2019-08-08] MEDS ORDERED: Lisinopril 20mg tab GT SCH (09:00)
[2019-08-08] MEDS: Multivitamins W/Minerals 15 ML UDC GT SCH (09:02)
[2019-08-08] MEDS: Heparin 5000 units/ml inj SUBQ SCH ×2 (09:07→21:21)
--- NOTE | 2019-08-08 09:57 | Pulmonology Progress Note ---
Assessment/Plan Assessment/Plan IMPRESSION: 1. Pneumonia, left lung base. 2. Chronic trach. 3. Chronic vent dependent. DISCUSSION: Continue broad-spectrum antibiotics including Rocephin. 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 Continue trach and vent. I will adjust vent settings as needed. Domingo Barros M.D. Subjective Interval Events: None new; awake and responsive Constitutional: Reports: no symptoms HEENT: Repors: no symptoms Respiratory: Reports: no symptoms Cardiovascular: Reports: no symptoms Allergies: Coded Allergies: No Known Allergies (Unverified , 08/05/19) Objective Last 24 Hour Vital Signs Date Time Temp Pulse Resp B/P (MAP) Pulse Ox O2 Delivery O2 Flow Rate FiO2 08/08/19 09:00 106/58 08/08/19 09:00 62 106/58 08/08/19 08:56 62 106/58 08/08/19 08:50 55 14 30 08/08/19 07:09 70 15 30 08/08/19 05:37 64 14 30 08/08/19 04:00 98.6 66 16 111/60 (77) 99 08/08/19 04:00 30 08/08/19 04:00 T-piece T-piece 08/08/19 04:00 58 08/08/19 02:43 59 14 30 08/08/19 01:03 57 14 30 08/08/19 00:00 63 08/08/19 00:00 30 08/08/19 00:00 T-piece T-piece 08/08/19 00:00 98.6 66 16 114/65 (81) 99 08/07/19 22:32 66 16 30 08/07/19 20:36 71 19 30 08/07/19 20:00 66 08/07/19 20:00 97.7 65 20 96/36 (56) 100 08/07/19 20:00 30 08/07/19 20:00 T-piece T-piece 08/07/19 18:46 67 18 30 08/07/19 16:53 78 19 30 08/07/19 16:00 T-piece T-piece 08/07/19 16:00 30 08/07/19 16:00 97.5 65 22 101/64 (76) 100 08/07/19 16:00 61 08/07/19 15:25 72 14 30 08/07/19 13:00 78 20 30 08/07/19 12:00 T-piece T-piece 08/07/19 12:00 30 08/07/19 12:00 98.1 77 20 98/41 (60) 97 08/07/19 11:26 65 08/07/19 11:14 66 22 30 Intake and Output 08/07/19 08/08/19 19:00 07:00 Intake Total 1450 ml 1195 ml Output Total 40 ml 40 ml Balance 1410 ml 1155 ml Intake Free Water 80 ml 100 ml IV Total 830 ml 600 ml Tube Feeding 540 ml 495 ml Output Urine Total 40 ml 40 ml # Voids 4 4 General Appearance: no acute distress HEENT: normocephalic Respiratory/Chest: chest wall non-tender, lungs clear Cardiovascular: normal peripheral pulses, normal rate Abdomen: normal bowel sounds Microbiology Date/Time Source Procedure Growth Status 08/05/19 14:42 Nasal Nares MRSA Culture - Final NO METHICILLIN RESISTANT STAPH AUREUS... Complete 08/05/19 12:24 Urine,Clean Catch Urine Culture - Final Proteus Mirabilis Complete 08/05/19 14:42 Rectum - Final NO CARBAPENEM-RESISTANT ENTEROBACTERI... Complete 08/05/19 14:42 Rectum VRE Culture - Final NO VANCOMYCIN RESISTANT ENTEROCOCCUS ... Complete Laboratory Tests 08/08/19 03:50: White Blood Count 4.4L, Red Blood Count 3.30L, Hemoglobin 10.7L, Hematocrit 30.6L, Mean Corpuscular Volume 93, Mean Corpuscular Hemoglobin 32.5H, Mean Corpuscular Hemoglobin Concent 35.1, Red Cell Distribution Width 11.4L, Platelet Count 209, Mean Platelet Volume 7.7, Neutrophils (%) (Auto) 50.9, Lymphocytes (%) (Auto) 30.0, Monocytes (%) (Auto) 12.6H, Eosinophils (%) (Auto) 4.8H, Basophils (%) (Auto) 1.7, Sodium Level 146H, Potassium Level 3.6, Chloride Level 113H, Carbon Dioxide Level 26, Anion Gap 7, Blood Urea Nitrogen 20H, Creatinine 0.8, Estimat Glomerular Filtration Rate > 60, Glucose Level 103 , Hemoglobin A1c 4.9, Uric Acid 3.1, Calcium Level 8.6, Phosphorus Level 2.9, Magnesium Level 2.1, Iron Level 104, Total Iron Binding Capacity 211L, Percent Iron Saturation 49, Unsaturated Iron Binding 107L, Ferritin 122, Total Bilirubin 0.3, Aspartate Amino Transf (AST/SGOT) 18, Alanine Aminotransferase ( ALT/SGPT) 26, Alkaline Phosphatase 80, Troponin I 0.007, C-Reactive Protein, Quantitative 1.0H, Pro-B-Type Natriuretic Peptide 89, Total Protein 7.0, Albumin 2.7L, Globulin 4.3, Albumin/Globulin Ratio 0.6L, Triglycerides Level 73 , Cholesterol Level 88, LDL Cholesterol 56, HDL Cholesterol 24L, Cholesterol/ HDL Ratio 3.7, Vitamin B12 Level 826, Folate 27.4, Thyroid Stimulating Hormone ( TSH) 0.567 Current Medications Medications (Trade) Dose Ordered Sig/Scott Route PRN Reason Start Time Stop Time Status Last Admin Dose Admin Albuterol Sulfate (Proventil) 2.5 mg Q6H PRN HHN Shortness of Breath 08/05/19 19:00 08/10/19 18:59 Amlodipine Besylate (Norvasc) 2.5 mg DAILY GT 08/08/19 09:00 09/04/19 18:59 Carvedilol (Coreg) 3.125 mg EVERY 12 HOURS GT 08/08/19 09:00 09/07/19 08:59 08/08/19 08:56 Ceftriaxone Sodium 2 gm/ Dextrose 55 ml @ 110 mls/hr Q24H IVPB 08/06/19 13:00 08/13/19 12:59 08/07/19 12:45 Dextrose/ Electrolytes 1,000 ml @ 50 mls/hr Q20H IV 08/07/19 13:00 09/06/19 12:59 08/08/19 08:54 Docusate Sodium (Colace) 100 mg TID GT 08/07/19 13:00 09/05/19 08:59 08/08/19 08:48 Famotidine (Pepcid) 20 mg BID GT 08/07/19 18:00 09/05/19 08:59 08/08/19 08:59 Heparin Sodium (Porcine) (Heparin 5000 units/ml) 5,000 units EVERY 12 HOURS SUBQ 08/07/19 09:30 09/06/19 09:29 08/08/19 09:07 Levetiracetam (Keppra) 500 mg EVERY 12 HOURS GT 08/05/19 21:00 09/04/19 20:59 08/08/19 08:49 Lisinopril (PriniviL) 20 mg DAILY GT 08/08/19 09:00 09/05/19 08:59 Multivitamins (Multivitamins W/ Minerals 15ml Liquid) 15 ml DAILY GT 08/06/19 09:00 09/05/19 08:59 08/08/19 09:02 Potassium Chloride 100 ml @ 100 mls/hr Q1HR IVPB 08/08/19 09:00 08/08/19 10:59 08/08/19 08:53 Domingo Barros MD Aug 08, 2019 09:57
--- NOTE | 2019-08-08 10:18 | Nephrology Progress Note ---
Assessment/Plan Problem List: (1) Hypotension (2) Electrolyte imbalance (3) UTI (urinary tract infection) (4) CVA, old, hemiparesis Assessment HypoKalemia UTI Pneumonia left lung chronic trach- Vent left dense chriss BP low Plan Adjust BP meds- K supplement monitor lytes IV hydrate and bolus per orders Subjective ROS Limited/Unobtainable: Yes Objective Objective Last 24 Hour Vital Signs Date Time Temp Pulse Resp B/P (MAP) Pulse Ox O2 Delivery O2 Flow Rate FiO2 08/08/19 09:00 106/58 08/08/19 09:00 62 106/58 08/08/19 08:56 62 106/58 08/08/19 08:50 55 14 30 08/08/19 08:00 T-piece T-piece 08/08/19 07:09 70 15 30 08/08/19 05:37 64 14 30 08/08/19 04:00 98.6 66 16 111/60 (77) 99 08/08/19 04:00 30 08/08/19 04:00 T-piece T-piece 08/08/19 04:00 58 08/08/19 02:43 59 14 30 08/08/19 01:03 57 14 30 08/08/19 00:00 63 08/08/19 00:00 30 08/08/19 00:00 T-piece T-piece 08/08/19 00:00 98.6 66 16 114/65 (81) 99 08/07/19 22:32 66 16 30 08/07/19 20:36 71 19 30 08/07/19 20:00 66 08/07/19 20:00 97.7 65 20 96/36 (56) 100 08/07/19 20:00 30 08/07/19 20:00 T-piece T-piece 08/07/19 18:46 67 18 30 08/07/19 16:53 78 19 30 08/07/19 16:00 T-piece T-piece 08/07/19 16:00 30 08/07/19 16:00 97.5 65 22 101/64 (76) 100 08/07/19 16:00 61 08/07/19 15:25 72 14 30 08/07/19 13:00 78 20 30 08/07/19 12:00 T-piece T-piece 08/07/19 12:00 30 08/07/19 12:00 98.1 77 20 98/41 (60) 97 08/07/19 11:26 65 08/07/19 11:14 66 22 30 Intake and Output 08/07/19 08/08/19 19:00 07:00 Intake Total 1450 ml 1195 ml Output Total 40 ml 40 ml Balance 1410 ml 1155 ml Intake Free Water 80 ml 100 ml IV Total 830 ml 600 ml Tube Feeding 540 ml 495 ml Output Urine Total 40 ml 40 ml # Voids 4 4 Laboratory Tests 08/08/19 03:50: White Blood Count 4.4L, Red Blood Count 3.30L, Hemoglobin 10.7L, Hematocrit 30.6L, Mean Corpuscular Volume 93, Mean Corpuscular Hemoglobin 32.5H, Mean Corpuscular Hemoglobin Concent 35.1, Red Cell Distribution Width 11.4L, Platelet Count 209, Mean Platelet Volume 7.7, Neutrophils (%) (Auto) 50.9, Lymphocytes (%) (Auto) 30.0, Monocytes (%) (Auto) 12.6H, Eosinophils (%) (Auto) 4.8H, Basophils (%) (Auto) 1.7, Sodium Level 146H, Potassium Level 3.6, Chloride Level 113H, Carbon Dioxide Level 26, Anion Gap 7, Blood Urea Nitrogen 20H, Creatinine 0.8, Estimat Glomerular Filtration Rate > 60, Glucose Level 103 , Hemoglobin A1c 4.9, Uric Acid 3.1, Calcium Level 8.6, Phosphorus Level 2.9, Magnesium Level 2.1, Iron Level 104, Total Iron Binding Capacity 211L, Percent Iron Saturation 49, Unsaturated Iron Binding 107L, Ferritin 122, Total Bilirubin 0.3, Aspartate Amino Transf (AST/SGOT) 18, Alanine Aminotransferase ( ALT/SGPT) 26, Alkaline Phosphatase 80, Troponin I 0.007, C-Reactive Protein, Quantitative 1.0H, Pro-B-Type Natriuretic Peptide 89, Total Protein 7.0, Albumin 2.7L, Globulin 4.3, Albumin/Globulin Ratio 0.6L, Triglycerides Level 73 , Cholesterol Level 88, LDL Cholesterol 56, HDL Cholesterol 24L, Cholesterol/ HDL Ratio 3.7, Vitamin B12 Level 826, Folate 27.4, Thyroid Stimulating Hormone ( TSH) 0.567 Height (Feet): 5 Height (Inches): 7.00 Weight (Pounds): 176 General Appearance: no apparent distress EENT: other - trach-Vent Cardiovascular: bradycardia Respiratory/Chest: decreased breath sounds Abdomen: soft, distended Ayush Chung MD Aug 08, 2019 10:18
[2019-08-08 12:00] VITALS: BP 139/89
[2019-08-08] MEDS: cefTRIAXone 2 GM in D5W 55 ML IVPB SCH (13:10)
[2019-08-08 15:56] VITALS: BP 115/71
--- NOTE | 2019-08-08 16:49 | General Progress Note ---
Assessment/Plan Problem List: (1) Abnormal laboratory test result ICD Codes: R89.9 - Unspecified abnormal finding in specimens from other organs , systems and tissues SNOMED: 090517590 (2) UTI (urinary tract infection) ICD Codes: N39.0 - Urinary tract infection, site not specified SNOMED: 91629061 Status: progressing Assessment/Plan: uti is improving afebrile vitals stable has dvt anticoagulant trach Subjective ROS Limited/Unobtainable: Yes Allergies: Coded Allergies: No Known Allergies (Unverified , 08/05/19) Objective Last 24 Hour Vital Signs Date Time Temp Pulse Resp B/P (MAP) Pulse Ox O2 Delivery O2 Flow Rate FiO2 08/08/19 16:00 30 08/08/19 16:00 T-piece T-piece 08/08/19 15:56 97.7 66 16 115/71 (86) 98 08/08/19 14:38 57 14 30 08/08/19 13:08 99 19 30 08/08/19 12:00 98.5 92 16 139/89 (106) 98 08/08/19 12:00 96 08/08/19 12:00 30 08/08/19 12:00 T-piece T-piece 08/08/19 10:51 85 14 30 08/08/19 09:00 106/58 08/08/19 09:00 62 106/58 08/08/19 08:56 62 106/58 08/08/19 08:50 55 14 30 08/08/19 08:00 30 08/08/19 08:00 97.6 62 16 106/58 (74) 98 08/08/19 08:00 T-piece T-piece 08/08/19 08:00 62 08/08/19 07:09 70 15 30 08/08/19 05:37 64 14 30 08/08/19 04:00 98.6 66 16 111/60 (77) 99 08/08/19 04:00 30 08/08/19 04:00 T-piece T-piece 08/08/19 04:00 58 08/08/19 02:43 59 14 30 08/08/19 01:03 57 14 30 08/08/19 00:00 63 08/08/19 00:00 30 08/08/19 00:00 T-piece T-piece 08/08/19 00:00 98.6 66 16 114/65 (81) 99 08/07/19 22:32 66 16 30 08/07/19 20:36 71 19 30 08/07/19 20:00 66 08/07/19 20:00 97.7 65 20 96/36 (56) 100 08/07/19 20:00 30 08/07/19 20:00 T-piece T-piece 08/07/19 18:46 67 18 30 08/07/19 16:53 78 19 30 Intake and Output 08/07/19 08/08/19 19:00 07:00 Intake Total 1450 ml 1240 ml Output Total 40 ml 40 ml Balance 1410 ml 1200 ml Intake Free Water 80 ml 100 ml IV Total 830 ml 600 ml Tube Feeding 540 ml 540 ml Output Urine Total 40 ml 40 ml # Voids 4 4 Laboratory Tests 08/08/19 03:50: White Blood Count 4.4L, Red Blood Count 3.30L, Hemoglobin 10.7L, Hematocrit 30.6L, Mean Corpuscular Volume 93, Mean Corpuscular Hemoglobin 32.5H, Mean Corpuscular Hemoglobin Concent 35.1, Red Cell Distribution Width 11.4L, Platelet Count 209, Mean Platelet Volume 7.7, Neutrophils (%) (Auto) 50.9, Lymphocytes (%) (Auto) 30.0, Monocytes (%) (Auto) 12.6H, Eosinophils (%) (Auto) 4.8H, Basophils (%) (Auto) 1.7, Sodium Level 146H, Potassium Level 3.6, Chloride Level 113H, Carbon Dioxide Level 26, Anion Gap 7, Blood Urea Nitrogen 20H, Creatinine 0.8, Estimat Glomerular Filtration Rate > 60, Glucose Level 103 , Hemoglobin A1c 4.9, Uric Acid 3.1, Calcium Level 8.6, Phosphorus Level 2.9, Magnesium Level 2.1, Iron Level 104, Total Iron Binding Capacity 211L, Percent Iron Saturation 49, Unsaturated Iron Binding 107L, Ferritin 122, Total Bilirubin 0.3, Aspartate Amino Transf (AST/SGOT) 18, Alanine Aminotransferase ( ALT/SGPT) 26, Alkaline Phosphatase 80, Troponin I 0.007, C-Reactive Protein, Quantitative 1.0H, Pro-B-Type Natriuretic Peptide 89, Total Protein 7.0, Albumin 2.7L, Globulin 4.3, Albumin/Globulin Ratio 0.6L, Triglycerides Level 73 , Cholesterol Level 88, LDL Cholesterol 56, HDL Cholesterol 24L, Cholesterol/ HDL Ratio 3.7, Vitamin B12 Level 826, Folate 27.4, Thyroid Stimulating Hormone ( TSH) 0.567 Height (Feet): 5 Height (Inches): 7.00 Weight (Pounds): 176 Cardiovascular: regular rhythm Respiratory/Chest: lungs clear Abdomen: soft Dante Awan MD Aug 08, 2019 16:49
--- NOTE | 2019-08-08 19:20 | NUR ---
HAND-OFF: Report given to ANAM Paulino. Patient in stable condition.
--- NOTE | 2019-08-08 19:21 | NUR ---
NURSE NOTES: Received patient from ANAM Tyler. Patient is aaox1, vss, and no sign of distress. Patient is cooperative and refuses regular oral care. Patient is on security monitor, trach to vent Portex 8 AC 14, TV 500, Fio2 35%, PEEP of 5. Patient is running Jevity 1.2 at 45cc/hr. Left hand 24g, and skin issues include left AC fungal growth. Bed in lowest position, call light in reach and x3 bed rails are up. Will continue to monitor.
[2019-08-08 20:00] VITALS: BP 120/97
[2019-08-09 04:00] VITALS: BP 129/58
[2019-08-09] MEDS: D5 1/2NS w/KCL 10meq 1,000 ML IV SCH (04:29)
--- NOTE | 2019-08-09 07:28 | NUR ---
HAND-OFF: Report given to ANAM Clay.
--- NOTE | 2019-08-09 07:30 | NUR ---
NURSE NOTES: Received report from ANAM Paulino. Patient is resting in bed, in stable condition. No s/sx SOB, breathing is even and unlabored, pt is on vent with vent settings as ordered. Patient is nonverbal, observed no presence of pain or discomfort at this time. Per night nurse report, Dr. 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 Reviewed Dr. Awan notes, "Has DVT. On anticoagulant." Noted. Bed is in lowest position, brakes engaged. Call light is kept within easy reach. Will continue to monitor patient.
[2019-08-09 08:00] VITALS: BP 144/68
[2019-08-09] MEDS: levETIRAcetam 500mg/5ml Liquid GT SCH ×2 (08:56→20:55)
[2019-08-09] MEDS: Docusate 100mg/10ml Liq GT SCH ×3 (08:56→17:30)
[2019-08-09] MEDS: Multivitamins W/Minerals 15 ML UDC GT SCH (08:56)
[2019-08-09] MEDS: Lisinopril 2.5mg tab GT SCH (08:57)
[2019-08-09] MEDS: Heparin 5000 units/ml inj SUBQ SCH ×2 (08:58→20:57)
--- NOTE | 2019-08-09 11:38 | Pulmonology Progress Note ---
Assessment/Plan Assessment/Plan IMPRESSION: 1. Pneumonia, left lung base. 2. Chronic trach. 3. Chronic vent dependent. DISCUSSION: Continue broad-spectrum antibiotics including Rocephin. 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 Continue trach and vent. I will adjust vent settings as needed. Suggest dc planning back to subacute Domingo Barros M.D. Subjective Interval Events: None new Constitutional: Reports: no symptoms HEENT: Repors: no symptoms Respiratory: Reports: no symptoms Cardiovascular: Reports: no symptoms Gastrointestinal/Abdominal: Reports: no symptoms Allergies: Coded Allergies: No Known Allergies (Unverified , 08/05/19) Objective Last 24 Hour Vital Signs Date Time Temp Pulse Resp B/P (MAP) Pulse Ox O2 Delivery O2 Flow Rate FiO2 08/09/19 11:06 66 21 30 08/09/19 08:57 144/68 08/09/19 08:57 53 144/68 08/09/19 08:50 53 144/68 08/09/19 08:49 54 20 30 08/09/19 08:00 98.9 53 22 144/68 (93) 100 08/09/19 08:00 T-piece T-piece 08/09/19 08:00 30 08/09/19 07:20 57 14 30 08/09/19 05:24 55 16 30 08/09/19 04:00 57 08/09/19 04:00 T-piece T-piece 08/09/19 04:00 30 08/09/19 04:00 97.7 58 22 129/58 (81) 100 08/09/19 03:05 66 14 30 08/09/19 01:44 60 14 30 08/09/19 00:00 55 08/09/19 00:00 T-piece T-piece 08/08/19 23:03 53 17 30 08/08/19 21:25 63 17 30 08/08/19 21:19 63 120/97 08/08/19 20:00 30 08/08/19 20:00 97.2 63 20 120/97 (105) 99 08/08/19 20:00 T-piece T-piece 08/08/19 20:00 64 08/08/19 19:24 66 16 30 08/08/19 17:01 65 25 30 08/08/19 16:00 30 08/08/19 16:00 55 08/08/19 16:00 T-piece T-piece 08/08/19 15:56 97.7 66 16 115/71 (86) 98 08/08/19 14:38 57 14 30 08/08/19 13:08 99 19 30 08/08/19 12:00 98.5 92 16 139/89 (106) 98 08/08/19 12:00 96 08/08/19 12:00 30 08/08/19 12:00 T-piece T-piece Intake and Output 08/08/19 08/09/19 19:00 07:00 Intake Total 1584.21633 ml 1115 ml Output Total 220 ml 400 ml Balance 1364.78036 ml 715 ml Intake Free Water 100 ml 50 ml IV Total 854.18703 ml 525 ml Tube Feeding 540 ml 540 ml Other 90 ml Output Urine Total 220 ml 400 ml # Voids 5 1 General Appearance: no acute distress HEENT: status post trach Respiratory/Chest: chest wall non-tender, normal breath sounds Cardiovascular: normal peripheral pulses Abdomen: normal bowel sounds Current Medications Medications (Trade) Dose Ordered Sig/Scott Route PRN Reason Start Time Stop Time Status Last Admin Dose Admin Albuterol Sulfate (Proventil) 2.5 mg Q6H PRN HHN Shortness of Breath 08/05/19 19:00 08/10/19 18:59 Amlodipine Besylate (Norvasc) 2.5 mg DAILY GT 08/08/19 09:00 09/04/19 18:59 08/09/19 08:57 Carvedilol (Coreg) 3.125 mg EVERY 12 HOURS GT 08/08/19 09:00 09/07/19 08:59 08/08/19 21:19 Ceftriaxone Sodium 2 gm/ Dextrose 55 ml @ 110 mls/hr Q24H IVPB 08/06/19 13:00 08/13/19 12:59 08/08/19 13:10 Dextrose/ Electrolytes 1,000 ml @ 50 mls/hr Q20H IV 08/07/19 13:00 09/06/19 12:59 08/09/19 04:29 Docusate Sodium (Colace) 100 mg TID GT 08/07/19 13:00 09/05/19 08:59 08/09/19 08:56 Famotidine (Pepcid) 20 mg BID GT 08/07/19 18:00 09/05/19 08:59 08/09/19 08:57 Heparin Sodium (Porcine) (Heparin 5000 units/ml) 5,000 units EVERY 12 HOURS SUBQ 08/07/19 09:30 09/06/19 09:29 08/09/19 08:58 Levetiracetam (Keppra) 500 mg EVERY 12 HOURS GT 08/05/19 21:00 09/04/19 20:59 08/09/19 08:56 Lisinopril (ZestriL) 2.5 mg DAILY GT 08/09/19 09:00 09/05/19 08:59 08/09/19 08:57 Multivitamins (Multivitamins W/ Minerals 15ml Liquid) 15 ml DAILY GT 08/06/19 09:00 09/05/19 08:59 08/09/19 08:56 Domingo Barros MD Aug 09, 2019 11:38
[2019-08-09 12:00] VITALS: BP 130/66
--- NOTE | 2019-08-09 12:23 | Nephrology Progress Note ---
Assessment/Plan Problem List: (1) Hypotension (2) Electrolyte imbalance (3) UTI (urinary tract infection) (4) CVA, old, hemiparesis Assessment HypoKalemia UTI Pneumonia left lung chronic trach- Vent left dense chriss BP low Plan Adjust BP meds- K supplement monitor lytes IV hydrate and bolus as needed per orders Subjective ROS Limited/Unobtainable: Yes Objective Objective Last 24 Hour Vital Signs Date Time Temp Pulse Resp B/P (MAP) Pulse Ox O2 Delivery O2 Flow Rate FiO2 08/09/19 12:00 T-piece T-piece 08/09/19 12:00 97.4 58 20 130/66 (87) 100 08/09/19 12:00 30 08/09/19 11:06 66 21 30 08/09/19 08:57 144/68 08/09/19 08:57 53 144/68 08/09/19 08:50 53 144/68 08/09/19 08:49 54 20 30 08/09/19 08:00 98.9 53 22 144/68 (93) 100 08/09/19 08:00 T-piece T-piece 08/09/19 08:00 30 08/09/19 07:20 57 14 30 08/09/19 05:24 55 16 30 08/09/19 04:00 57 08/09/19 04:00 T-piece T-piece 08/09/19 04:00 30 08/09/19 04:00 97.7 58 22 129/58 (81) 100 08/09/19 03:05 66 14 30 08/09/19 01:44 60 14 30 08/09/19 00:00 55 08/09/19 00:00 T-piece T-piece 08/08/19 23:03 53 17 30 08/08/19 21:25 63 17 30 08/08/19 21:19 63 120/97 08/08/19 20:00 30 08/08/19 20:00 97.2 63 20 120/97 (105) 99 08/08/19 20:00 T-piece T-piece 08/08/19 20:00 64 08/08/19 19:24 66 16 30 08/08/19 17:01 65 25 30 08/08/19 16:00 30 08/08/19 16:00 55 08/08/19 16:00 T-piece T-piece 08/08/19 15:56 97.7 66 16 115/71 (86) 98 08/08/19 14:38 57 14 30 08/08/19 13:08 99 19 30 Intake and Output 08/08/19 08/09/19 19:00 07:00 Intake Total 1584.51964 ml 1115 ml Output Total 220 ml 400 ml Balance 1364.71234 ml 715 ml Intake Free Water 100 ml 50 ml IV Total 854.28673 ml 525 ml Tube Feeding 540 ml 540 ml Other 90 ml Output Urine Total 220 ml 400 ml # Voids 5 1 Height (Feet): 5 Height (Inches): 7.00 Weight (Pounds): 176 General Appearance: no apparent distress EENT: other - trach-vent Cardiovascular: bradycardia Respiratory/Chest: decreased breath sounds Abdomen: soft Ayush Chung MD Aug 09, 2019 12:23
[2019-08-09] MEDS: cefTRIAXone 2 GM in D5W 55 ML IVPB SCH (12:34)
--- NOTE | 2019-08-09 12:34 | Infectious Diseases Prog Note ---
Assessment/Plan Assessment/Plan IMPRESSION: Proteus UTI. Atelectasis or infiltrate in the left lung. fatty liver. Ventilator-dependent respiratory failure, BPH, hypertension, status post CVA. RECOMMENDATION: We will continue ceftriaxone Subjective ROS Limited/Unobtainable: Yes Constitutional: Denies: fever Allergies: Coded Allergies: No Known Allergies (Unverified , 08/05/19) Objective Vital Signs Last 24 Hour Vital Signs Date Time Temp Pulse Resp B/P (MAP) Pulse Ox O2 Delivery O2 Flow Rate FiO2 08/09/19 12:00 T-piece T-piece 08/09/19 12:00 97.4 58 20 130/66 (87) 100 08/09/19 12:00 30 08/09/19 11:06 66 21 30 08/09/19 08:57 144/68 08/09/19 08:57 53 144/68 08/09/19 08:50 53 144/68 08/09/19 08:49 54 20 30 08/09/19 08:00 98.9 53 22 144/68 (93) 100 08/09/19 08:00 T-piece T-piece 08/09/19 08:00 30 08/09/19 07:20 57 14 30 08/09/19 05:24 55 16 30 08/09/19 04:00 57 08/09/19 04:00 T-piece T-piece 08/09/19 04:00 30 08/09/19 04:00 97.7 58 22 129/58 (81) 100 08/09/19 03:05 66 14 30 08/09/19 01:44 60 14 30 08/09/19 00:00 55 08/09/19 00:00 T-piece T-piece 08/08/19 23:03 53 17 30 08/08/19 21:25 63 17 30 08/08/19 21:19 63 120/97 08/08/19 20:00 30 08/08/19 20:00 97.2 63 20 120/97 (105) 99 08/08/19 20:00 T-piece T-piece 08/08/19 20:00 64 08/08/19 19:24 66 16 30 08/08/19 17:01 65 25 30 08/08/19 16:00 30 08/08/19 16:00 55 08/08/19 16:00 T-piece T-piece 08/08/19 15:56 97.7 66 16 115/71 (86) 98 08/08/19 14:38 57 14 30 08/08/19 13:08 99 19 30 Height (Feet): 5 Height (Inches): 7.00 Weight (Pounds): 176 HEENT: status post trach Respiratory/Chest: lungs clear, other - on ventilator Cardiovascular: bradycardia Abdomen: soft, non tender, other - GT feeding Extremities: no edema Neurologic/Psychiatric: alert, responsive, other - left hemiplegia Current Medications Medications (Trade) Dose Ordered Sig/Scott Route PRN Reason Start Time Stop Time Status Last Admin Dose Admin Albuterol Sulfate (Proventil) 2.5 mg Q6H PRN HHN Shortness of Breath 08/05/19 19:00 08/10/19 18:59 Amlodipine Besylate (Norvasc) 2.5 mg DAILY GT 08/08/19 09:00 09/04/19 18:59 08/09/19 08:57 Carvedilol (Coreg) 3.125 mg EVERY 12 HOURS GT 08/08/19 09:00 09/07/19 08:59 08/08/19 21:19 Ceftriaxone Sodium 2 gm/ Dextrose 55 ml @ 110 mls/hr Q24H IVPB 08/06/19 13:00 08/13/19 12:59 08/08/19 13:10 Docusate Sodium (Colace) 100 mg TID GT 08/07/19 13:00 09/05/19 08:59 08/09/19 08:56 Famotidine (Pepcid) 20 mg BID GT 08/07/19 18:00 09/05/19 08:59 08/09/19 08:57 Heparin Sodium (Porcine) (Heparin 5000 units/ml) 5,000 units EVERY 12 HOURS SUBQ 08/07/19 09:30 09/06/19 09:29 08/09/19 08:58 Levetiracetam (Keppra) 500 mg EVERY 12 HOURS GT 08/05/19 21:00 09/04/19 20:59 08/09/19 08:56 Lisinopril (ZestriL) 2.5 mg DAILY GT 08/09/19 09:00 09/05/19 08:59 08/09/19 08:57 Multivitamins (Multivitamins W/ Minerals 15ml Liquid) 15 ml DAILY GT 08/06/19 09:00 09/05/19 08:59 08/09/19 08:56 Con Huff MD Aug 09, 2019 12:34
--- NOTE | 2019-08-09 13:18 | General Progress Note ---
Assessment/Plan Problem List: (1) Abnormal laboratory test result ICD Codes: R89.9 - Unspecified abnormal finding in specimens from other organs , systems and tissues SNOMED: 084510177 (2) UTI (urinary tract infection) ICD Codes: N39.0 - Urinary tract infection, site not specified SNOMED: 29095567 Status: progressing Assessment/Plan: uti is improving borderline k dc planning no bleeding reviewed chart has dvt anticoagulant trach Subjective ROS Limited/Unobtainable: Yes Allergies: Coded Allergies: No Known Allergies (Unverified , 08/05/19) Objective Last 24 Hour Vital Signs Date Time Temp Pulse Resp B/P (MAP) Pulse Ox O2 Delivery O2 Flow Rate FiO2 08/09/19 12:45 56 15 30 08/09/19 12:00 T-piece T-piece 08/09/19 12:00 97.4 58 20 130/66 (87) 100 08/09/19 12:00 30 08/09/19 11:06 66 21 30 08/09/19 08:57 144/68 08/09/19 08:57 53 144/68 08/09/19 08:50 53 144/68 08/09/19 08:49 54 20 30 08/09/19 08:00 98.9 53 22 144/68 (93) 100 08/09/19 08:00 T-piece T-piece 08/09/19 08:00 30 08/09/19 07:20 57 14 30 08/09/19 05:24 55 16 30 08/09/19 04:00 57 08/09/19 04:00 T-piece T-piece 08/09/19 04:00 30 08/09/19 04:00 97.7 58 22 129/58 (81) 100 08/09/19 03:05 66 14 30 08/09/19 01:44 60 14 30 08/09/19 00:00 55 08/09/19 00:00 T-piece T-piece 08/08/19 23:03 53 17 30 08/08/19 21:25 63 17 30 08/08/19 21:19 63 120/97 08/08/19 20:00 30 08/08/19 20:00 97.2 63 20 120/97 (105) 99 08/08/19 20:00 T-piece T-piece 08/08/19 20:00 64 08/08/19 19:24 66 16 30 08/08/19 17:01 65 25 30 08/08/19 16:00 30 08/08/19 16:00 55 08/08/19 16:00 T-piece T-piece 08/08/19 15:56 97.7 66 16 115/71 (86) 98 08/08/19 14:38 57 14 30 Intake and Output 08/08/19 08/09/19 19:00 07:00 Intake Total 1584.46148 ml 1115 ml Output Total 220 ml 400 ml Balance 1364.82887 ml 715 ml Intake Free Water 100 ml 50 ml IV Total 854.72787 ml 525 ml Tube Feeding 540 ml 540 ml Other 90 ml Output Urine Total 220 ml 400 ml # Voids 5 1 Height (Feet): 5 Height (Inches): 7.00 Weight (Pounds): 176 Cardiovascular: normal rate Respiratory/Chest: lungs clear Dante Awan MD Aug 09, 2019 13:18
[2019-08-09 16:00] VITALS: BP 144/77
--- NOTE | 2019-08-09 17:42 | Hematology/Onc Progress Note ---
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 --> in the past received anticoagulation --> given this is an old blood clot, withold new treatment --> repeat in 3 months to make sure has resolved # Thrombocytopenia - potential causes multifactorial, evaluate liver and viral etiologies to begin, also could be related to underlying medications patient has received. --> Hep panel and HIV ordered --> US abd to evaluate for cirrhosis and hsm ordered --> no hsm or cirrhosis is noted --> Peripheral smear ordered to evaluate for blasts /schistocytes --> abx and other meds have been reviewed --> ok for ppx if plt >50k w/ either heparin or lovenox --> Transfuse if Plt < 20k and fever, or if Plt < 10k without fever # Anemia of chronic disease due to underlying chronic medical issues, multifactorial v Gi bleed --> Anemia workup has been ordered, rule out gi bleed --> No evidence of hemolysis is noted, peripheral smear has been reviewed. --> Hgb goal >7. Transfuse prn. --> Epogen or iron at this time is not particularly indicated --> Medications have been reviewed --> low threshold for gi evaluation in case has occult + # Uti is improving --> continue on ctx --> monitor for improvement # Borderline k --> as per renal # Respiratory failure s/p trach --> per pulm # Dysphagia s/p peg Appreciate consultation and dw Rn Subjective HEENT: Denies: no symptoms, eye pain, blurred vision, tearing, double vision, ear pain, ear discharge, nose pain, nose congestion, throat pain, throat swelling, mouth pain, mouth swelling, other Allergies: Coded Allergies: No Known Allergies (Unverified , 08/05/19) Subjective 08/09: no major changes, is nonverbal, on ctx, recs reviewed from consultants Objective Objective Current Medications Medications (Trade) Dose Ordered Sig/Scott Route PRN Reason Start Time Stop Time Status Last Admin Dose Admin Albuterol Sulfate (Proventil) 2.5 mg Q6H PRN HHN Shortness of Breath 08/05/19 19:00 08/10/19 18:59 Amlodipine Besylate (Norvasc) 2.5 mg DAILY GT 08/08/19 09:00 3/6/20 18:59 08/09/19 08:57 Carvedilol (Coreg) 3.125 mg EVERY 12 HOURS GT 08/08/19 09:00 09/07/19 08:59 08/08/19 21:19 Ceftriaxone Sodium 2 gm/ Dextrose 55 ml @ 110 mls/hr Q24H IVPB 08/06/19 13:00 08/13/19 12:59 08/09/19 12:34 Docusate Sodium (Colace) 100 mg TID GT 08/07/19 13:00 09/05/19 08:59 08/09/19 17:30 Famotidine (Pepcid) 20 mg BID GT 08/07/19 18:00 09/05/19 08:59 08/09/19 17:31 Heparin Sodium (Porcine) (Heparin 5000 units/ml) 5,000 units EVERY 12 HOURS SUBQ 08/07/19 09:30 09/06/19 09:29 08/09/19 08:58 Levetiracetam (Keppra) 500 mg EVERY 12 HOURS GT 08/05/19 21:00 09/04/19 20:59 08/09/19 08:56 Lisinopril (ZestriL) 2.5 mg DAILY GT 08/09/19 09:00 09/05/19 08:59 08/09/19 08:57 Multivitamins (Multivitamins W/ Minerals 15ml Liquid) 15 ml DAILY GT 08/06/19 09:00 09/05/19 08:59 08/09/19 08:56 Last 24 Hour Vital Signs Date Time Temp Pulse Resp B/P (MAP) Pulse Ox O2 Delivery O2 Flow Rate FiO2 08/09/19 17:16 59 17 30 08/09/19 16:00 97.9 57 20 144/77 (99) 100 08/09/19 16:00 T-piece T-piece 08/09/19 16:00 30 08/09/19 16:00 55 08/09/19 14:53 63 20 30 08/09/19 12:45 56 15 30 08/09/19 12:00 T-piece T-piece 08/09/19 12:00 97.4 58 20 130/66 (87) 100 08/09/19 12:00 55 08/09/19 12:00 30 08/09/19 11:06 66 21 30 08/09/19 08:57 144/68 08/09/19 08:57 53 144/68 08/09/19 08:50 53 144/68 08/09/19 08:49 54 20 30 08/09/19 08:00 98.9 53 22 144/68 (93) 100 08/09/19 08:00 T-piece T-piece 08/09/19 08:00 30 08/09/19 07:20 57 14 30 08/09/19 05:24 55 16 30 08/09/19 04:00 57 08/09/19 04:00 T-piece T-piece 08/09/19 04:00 30 08/09/19 04:00 97.7 58 22 129/58 (81) 100 08/09/19 03:05 66 14 30 08/09/19 01:44 60 14 30 08/09/19 00:00 55 08/09/19 00:00 T-piece T-piece 08/08/19 23:03 53 17 30 08/08/19 21:25 63 17 30 08/08/19 21:19 63 120/97 08/08/19 20:00 30 08/08/19 20:00 97.2 63 20 120/97 (105) 99 08/08/19 20:00 T-piece T-piece 08/08/19 20:00 64 08/08/19 19:24 66 16 30 08/08/19 17:01 65 25 30 08/08/19 16:00 30 08/08/19 16:00 55 08/08/19 16:00 T-piece T-piece 08/08/19 15:56 97.7 66 16 115/71 (86) 98 08/08/19 14:38 57 14 30 08/08/19 13:08 99 19 30 08/08/19 12:00 98.5 92 16 139/89 (106) 98 08/08/19 12:00 96 08/08/19 12:00 30 08/08/19 12:00 T-piece T-piece 08/08/19 10:51 85 14 30 08/08/19 09:00 106/58 08/08/19 09:00 62 106/58 08/08/19 08:56 62 106/58 08/08/19 08:50 55 14 30 08/08/19 08:00 30 08/08/19 08:00 97.6 62 16 106/58 (74) 98 08/08/19 08:00 T-piece T-piece 08/08/19 08:00 62 08/08/19 07:09 70 15 30 08/08/19 05:37 64 14 30 08/08/19 04:00 98.6 66 16 111/60 (77) 99 08/08/19 04:00 30 08/08/19 04:00 T-piece T-piece 08/08/19 04:00 58 08/08/19 02:43 59 14 30 08/08/19 01:03 57 14 30 08/08/19 00:00 63 08/08/19 00:00 30 08/08/19 00:00 T-piece T-piece 08/08/19 00:00 98.6 66 16 114/65 (81) 99 08/07/19 22:32 66 16 30 08/07/19 20:36 71 19 30 08/07/19 20:00 66 08/07/19 20:00 97.7 65 20 96/36 (56) 100 08/07/19 20:00 30 08/07/19 20:00 T-piece T-piece 08/07/19 18:46 67 18 30 Intake and Output 08/08/19 08/09/19 19:00 07:00 Intake Total 1584.31527 ml 1115 ml Output Total 220 ml 400 ml Balance 1364.59096 ml 715 ml Intake Free Water 100 ml 50 ml IV Total 854.48249 ml 525 ml Tube Feeding 540 ml 540 ml Other 90 ml Output Urine Total 220 ml 400 ml # Voids 5 1 Labs Test 08/07/19 04:10 08/08/19 03:50 Sodium Level 145 MMOL/L (136-145) 146 MMOL/L (136-145) Potassium Level 3.3 MMOL/L (3.5-5.1) 3.6 MMOL/L (3.5-5.1) Chloride Level 109 MMOL/L (98-107) 113 MMOL/L (98-107) Carbon Dioxide Level 28 MMOL/L (21-32) 26 MMOL/L (21-32) Anion Gap 8 mmol/L (5-15) 7 mmol/L (5-15) Blood Urea Nitrogen 22 mg/dL (7-18) 20 mg/dL (7-18) Creatinine 1.0 MG/DL (0.55-1.30) 0.8 MG/DL (0.55-1.30) Estimat Glomerular Filtration Rate > 60 mL/min (>60) > 60 mL/min (>60) Glucose Level 119 MG/DL (74-106) 103 MG/DL (74-106) Calcium Level 8.7 MG/DL (8.5-10.1) 8.6 MG/DL (8.5-10.1) White Blood Count 4.4 K/UL (4.8-10.8) Red Blood Count 3.30 M/UL (4.70-6.10) Hemoglobin 10.7 G/DL (14.2-18.0) Hematocrit 30.6 % (42.0-52.0) Mean Corpuscular Volume 93 FL (80-99) Mean Corpuscular Hemoglobin 32.5 PG (27.0-31.0) Mean Corpuscular Hemoglobin Concent 35.1 G/DL (32.0-36.0) Red Cell Distribution Width 11.4 % (11.6-14.8) Platelet Count 209 K/UL (150-450) Mean Platelet Volume 7.7 FL (6.5-10.1) Neutrophils (%) (Auto) 50.9 % (45.0-75.0) Lymphocytes (%) (Auto) 30.0 % (20.0-45.0) Monocytes (%) (Auto) 12.6 % (1.0-10.0) Eosinophils (%) (Auto) 4.8 % (0.0-3.0) Basophils (%) (Auto) 1.7 % (0.0-2.0) Hemoglobin A1c 4.9 % (4.3-6.0) Uric Acid 3.1 MG/DL (2.6-7.2) Phosphorus Level 2.9 MG/DL (2.5-4.9) Magnesium Level 2.1 MG/DL (1.8-2.4) Iron Level 104 ug/dL (50-175) Total Iron Binding Capacity 211 ug/dL (250-450) Percent Iron Saturation 49 % (15-50) Unsaturated Iron Binding 107 ug/dL (112-346) Ferritin 122 NG/ML (8-388) Total Bilirubin 0.3 MG/DL (0.2-1.0) Aspartate Amino Transf (AST/SGOT) 18 U/L (15-37) Alanine Aminotransferase (ALT/SGPT) 26 U/L (12-78) Alkaline Phosphatase 80 U/L (46-116) Troponin I 0.007 ng/mL (0.000-0.056) C-Reactive Protein, Quantitative 1.0 mg/dL (0.00-0.90) Pro-B-Type Natriuretic Peptide 89 pg/mL (0-125) Total Protein 7.0 G/DL (6.4-8.2) Albumin 2.7 G/DL (3.4-5.0) Globulin 4.3 g/dL Albumin/Globulin Ratio 0.6 (1.0-2.7) Triglycerides Level 73 MG/DL (30-150) Cholesterol Level 88 MG/DL (< 200) LDL Cholesterol 56 mg/dL (<100) HDL Cholesterol 24 MG/DL (40-60) Cholesterol/HDL Ratio 3.7 (3.3-4.4) Vitamin B12 Level 826 PG/ML (193-986) Folate 27.4 NG/ML (8.6-58.9) Thyroid Stimulating Hormone (TSH) 0.567 uiU/mL (0.358-3.740) Height (Feet): 5 Height (Inches): 7.00 Weight (Pounds): 176 Objective gen: nonverbal, altered pulm: ctab, no cwr, on trach/vent cv: rrr, no mgr abd: soft, s/p peg, mild abd pain ext: no cce neuro: s/p stroke Kp Gallego MD Aug 09, 2019 17:42
--- NOTE | 2019-08-09 19:20 | NUR ---
NURSE NOTES: Pt report received from Obed Bolden day shift RN. pt remains stable in bed watching TV. pt is alert and oriented times 3, able to follow commands. pt is on trach to vent, able to sat at 99%, no acute resp distress noted. pt is on business director showing NSR, no acute cardiac distress noted. bed is low, locked, armed, call light within reach, bed rails up times 3. will follow plan of care.
--- NOTE | 2019-08-09 19:27 | NUR ---
HAND-OFF: Report given to ANAM Ni.
[2019-08-09 20:00] VITALS: BP 134/91
[2019-08-10] VITALS: BP 139/92
[2019-08-10 04:00] VITALS: BP 135/82
[2019-08-10 05:05] LABS: ALANINE AMINOTRANSFERASE 40 U/L (12-78); ALBUMIN/GLOBULIN RATIO 0.6 (1.0-2.7); ALKALINE PHOSPHATASE 98 U/L (46-116); ANION GAP 9 mmol/L (5-15); ASPARTATE AMINO TRANSFERASE 29 U/L (15-37); BILIRUBIN,TOTAL 0.3 MG/DL (0.2-1.0); BLOOD UREA NITROGEN 13 mg/dL (7-18); CALCIUM 8.9 MG/DL (8.5-10.1); CARBON DIOXIDE 26 MMOL/L (21-32); CHLORIDE 110 MMOL/L (98-107); CREATININE 0.7 MG/DL (0.55-1.30); PHOSPHORUS 2.9 MG/DL (2.5-4.9); POTASSIUM 3.5 MMOL/L (3.5-5.1); SODIUM 144 MMOL/L (136-145)
[2019-08-10 05:11] LABS: BASOPHILS % (AUTO) 1.6 % (0.0-2.0); EOSINOPHILS % (AUTO) 6.3 % (0.0-3.0); HEMATOCRIT 33.8 % (42.0-52.0); HEMOGLOBIN 11.8 G/DL (14.2-18.0); LYMPHOCYTES % (AUTO) 28.7 % (20.0-45.0); MEAN CORPUSCULAR VOLUME 91 FL (80-99); MONOCYTES % (AUTO) 9.5 % (1.0-10.0); NEUTROPHILS % (AUTO) 54.1 % (45.0-75.0); PLATELET COUNT 252 K/UL (150-450); RED BLOOD COUNT 3.69 M/UL (4.70-6.10); RED CELL DISTRIBUTION WIDTH 10.6 % (11.6-14.8); WHITE BLOOD COUNT 4.8 K/UL (4.8-10.8)
--- NOTE | 2019-08-10 07:13 | NUR ---
HAND-OFF: Report given to ANGELINA Hong RN. Pt remains stable.
[2019-08-10 08:00] VITALS: BP 136/98
--- NOTE | 2019-08-10 08:00 | NUR ---
NURSE NOTES: received pt in the bed, awake, confused, vital signs stable, no co pain, no SOB, skin warm and dry to touch, intact, tolerate GT feeding well, yellow urine, vent dependent, bed in low position, call light within reach, HOB elevated.
--- NOTE | 2019-08-10 08:58 | Nephrology Progress Note ---
Assessment/Plan Problem List: (1) Hypotension (2) Electrolyte imbalance (3) UTI (urinary tract infection) (4) CVA, old, hemiparesis Assessment HypoKalemia UTI Pneumonia left lung chronic trach- Vent left dense chriss BP low Plan Adjust BP meds- DC Coreg, low HR K supplement monitor lytes IV hydrate and bolus as needed per orders Subjective ROS Limited/Unobtainable: Yes Objective Objective Last 24 Hour Vital Signs Date Time Temp Pulse Resp B/P (MAP) Pulse Ox O2 Delivery O2 Flow Rate FiO2 08/10/19 08:00 Mechanical Ventilator Mechanical Ventilator 08/10/19 08:00 30 08/10/19 08:00 97.7 60 15 136/98 (111) 100 08/10/19 07:00 52 14 30 08/10/19 05:14 54 14 30 08/10/19 04:00 30 08/10/19 04:00 98.3 67 22 135/82 (99) 99 08/10/19 04:00 78 08/10/19 04:00 Mechanical Ventilator Mechanical Ventilator 08/10/19 03:30 61 15 30 08/10/19 01:30 62 20 30 08/10/19 00:00 61 08/10/19 00:00 30 08/10/19 00:00 Mechanical Ventilator Mechanical Ventilator 08/10/19 00:00 97.6 61 21 139/92 (108) 99 08/09/19 23:30 66 19 30 08/09/19 21:30 60 20 30 08/09/19 20:55 66 134/91 08/09/19 20:00 61 08/09/19 20:00 T-piece Mechanical Ventilator 08/09/19 20:00 66 20 134/91 (105) 99 08/09/19 20:00 30 08/09/19 19:30 62 21 30 08/09/19 17:16 59 17 30 08/09/19 16:00 97.9 57 20 144/77 (99) 100 08/09/19 16:00 T-piece T-piece 08/09/19 16:00 30 08/09/19 16:00 55 08/09/19 14:53 63 20 30 08/09/19 12:45 56 15 30 08/09/19 12:00 T-piece T-piece 08/09/19 12:00 97.4 58 20 130/66 (87) 100 08/09/19 12:00 55 08/09/19 12:00 30 08/09/19 11:06 66 21 30 Intake and Output 08/09/19 08/10/19 19:00 07:00 Intake Total 1200 ml 795 ml Output Total 700 ml 500 ml Balance 500 ml 295 ml Intake Free Water 300 ml 300 ml IV Total 360 ml Tube Feeding 540 ml 495 ml Output Urine Total 700 ml 500 ml # Voids 2 # Bowel Movements 1 2 Current Medications Medications (Trade) Dose Ordered Sig/Scott Route PRN Reason Start Time Stop Time Status Last Admin Dose Admin Albuterol Sulfate (Proventil) 2.5 mg Q6H PRN HHN Shortness of Breath 08/05/19 19:00 08/10/19 18:59 Amlodipine Besylate (Norvasc) 2.5 mg DAILY GT 08/08/19 09:00 09/04/19 18:59 08/10/19 09:47 Carvedilol (Coreg) 3.125 mg EVERY 12 HOURS GT 08/08/19 09:00 09/07/19 08:59 08/10/19 09:47 Ceftriaxone Sodium 2 gm/ Dextrose 55 ml @ 110 mls/hr Q24H IVPB 08/06/19 13:00 08/13/19 12:59 08/10/19 12:15 Docusate Sodium (Colace) 100 mg TID GT 08/07/19 13:00 09/05/19 08:59 08/10/19 12:15 Famotidine (Pepcid) 20 mg BID GT 08/07/19 18:00 09/05/19 08:59 08/10/19 09:47 Heparin Sodium (Porcine) (Heparin 5000 units/ml) 5,000 units EVERY 12 HOURS SUBQ 08/07/19 09:30 09/06/19 09:29 08/10/19 09:49 Levetiracetam (Keppra) 500 mg EVERY 12 HOURS GT 08/05/19 21:00 09/04/19 20:59 08/10/19 09:46 Lisinopril (ZestriL) 2.5 mg DAILY GT 08/09/19 09:00 09/05/19 08:59 08/10/19 09:47 Multivitamins (Multivitamins W/ Minerals 15ml Liquid) 15 ml DAILY GT 08/06/19 09:00 09/05/19 08:59 08/10/19 09:46 Current Medications Medications (Trade) Dose Ordered Sig/Scott Route PRN Reason Start Time Stop Time Status Last Admin Dose Admin Albuterol Sulfate (Proventil) 2.5 mg Q6H PRN HHN Shortness of Breath 08/05/19 19:00 08/10/19 18:59 Amlodipine Besylate (Norvasc) 2.5 mg DAILY GT 08/08/19 09:00 09/04/19 18:59 08/09/19 08:57 Carvedilol (Coreg) 3.125 mg EVERY 12 HOURS GT 08/08/19 09:00 09/07/19 08:59 08/09/19 20:55 Ceftriaxone Sodium 2 gm/ Dextrose 55 ml @ 110 mls/hr Q24H IVPB 08/06/19 13:00 08/13/19 12:59 08/09/19 12:34 Docusate Sodium (Colace) 100 mg TID GT 08/07/19 13:00 09/05/19 08:59 08/09/19 17:30 Famotidine (Pepcid) 20 mg BID GT 08/07/19 18:00 09/05/19 08:59 08/09/19 17:31 Heparin Sodium (Porcine) (Heparin 5000 units/ml) 5,000 units EVERY 12 HOURS SUBQ 08/07/19 09:30 09/06/19 09:29 08/09/19 20:57 Levetiracetam (Keppra) 500 mg EVERY 12 HOURS GT 08/05/19 21:00 09/04/19 20:59 08/09/19 20:55 Lisinopril (ZestriL) 2.5 mg DAILY GT 08/09/19 09:00 09/05/19 08:59 08/09/19 08:57 Multivitamins (Multivitamins W/ Minerals 15ml Liquid) 15 ml DAILY GT 08/06/19 09:00 09/05/19 08:59 08/09/19 08:56 Laboratory Tests 08/10/19 03:40: White Blood Count 4.8, Red Blood Count 3.69L, Hemoglobin 11.8L, Hematocrit 33.8L , Mean Corpuscular Volume 91, Mean Corpuscular Hemoglobin 32.0H, Mean Corpuscular Hemoglobin Concent 35.0, Red Cell Distribution Width 10.6L, Platelet Count 252, Mean Platelet Volume 7.9, Neutrophils (%) (Auto) 54.1, Lymphocytes (%) (Auto) 28.7, Monocytes (%) (Auto) 9.5, Eosinophils (%) (Auto) 6.3H, Basophils (%) (Auto) 1.6, Sodium Level 144, Potassium Level 3.5, Chloride Level 110H, Carbon Dioxide Level 26, Anion Gap 9, Blood Urea Nitrogen 13, Creatinine 0.7, Estimat Glomerular Filtration Rate > 60, Glucose Level 100, Uric Acid 1.9L, Calcium Level 8.9, Phosphorus Level 2.9, Magnesium Level 2.0, Total Bilirubin 0.3, Aspartate Amino Transf (AST/SGOT) 29, Alanine Aminotransferase (ALT/SGPT) 40, Alkaline Phosphatase 98, Total Protein 7.7, Albumin 3.0L, Globulin 4.7, Albumin/Globulin Ratio 0.6L, Hepatitis A IgM Antibody [Pending], Hepatitis B Surface Antigen [Pending], Hepatitis B Core IgM Antibody [Pending], Hepatitis C Antibody [Pending], HIV (1&2) Antibody Rapid Negative Height (Feet): 5 Height (Inches): 7.00 Weight (Pounds): 176 General Appearance: no apparent distress EENT: other - Trach - Vent Cardiovascular: bradycardia Respiratory/Chest: decreased breath sounds Abdomen: distended Neurologic: other - left chriss Ayush Chung MD Aug 10, 2019 08:58
[2019-08-10] MEDS: Multivitamins W/Minerals 15 ML UDC GT SCH (09:46)
[2019-08-10] MEDS: Docusate 100mg/10ml Liq GT SCH ×3 (09:46→17:46)
[2019-08-10] MEDS: levETIRAcetam 500mg/5ml Liquid GT SCH (09:46)
[2019-08-10] MEDS: Lisinopril 2.5mg tab GT SCH (09:47)
[2019-08-10] MEDS: Heparin 5000 units/ml inj SUBQ SCH (09:49)
--- NOTE | 2019-08-10 10:40 | Infectious Diseases Prog Note ---
Assessment/Plan Assessment/Plan IMPRESSION: Proteus UTI. Atelectasis or infiltrate in the left lung. fatty liver. Ventilator-dependent respiratory failure, BPH, hypertension, status post CVA. RECOMMENDATION: We will continue ceftriaxone Subjective ROS Limited/Unobtainable: Yes Constitutional: Denies: fever Cardiovascular: Reports: palpitations Allergies: Coded Allergies: No Known Allergies (Unverified , 08/05/19) Objective Vital Signs Last 24 Hour Vital Signs Date Time Temp Pulse Resp B/P (MAP) Pulse Ox O2 Delivery O2 Flow Rate FiO2 08/10/19 09:47 136/98 08/10/19 09:47 60 136/98 08/10/19 09:47 60 136/98 08/10/19 09:00 55 14 30 08/10/19 08:00 Mechanical Ventilator Mechanical Ventilator 08/10/19 08:00 30 08/10/19 08:00 97.7 60 15 136/98 (111) 100 08/10/19 07:00 52 14 30 08/10/19 05:14 54 14 30 08/10/19 04:00 30 08/10/19 04:00 98.3 67 22 135/82 (99) 99 08/10/19 04:00 78 08/10/19 04:00 Mechanical Ventilator Mechanical Ventilator 08/10/19 03:30 61 15 30 08/10/19 01:30 62 20 30 08/10/19 00:00 61 08/10/19 00:00 30 08/10/19 00:00 Mechanical Ventilator Mechanical Ventilator 08/10/19 00:00 97.6 61 21 139/92 (108) 99 08/09/19 23:30 66 19 30 08/09/19 21:30 60 20 30 08/09/19 20:55 66 134/91 08/09/19 20:00 61 08/09/19 20:00 T-piece Mechanical Ventilator 08/09/19 20:00 66 20 134/91 (105) 99 08/09/19 20:00 30 08/09/19 19:30 62 21 30 08/09/19 17:16 59 17 30 08/09/19 16:00 97.9 57 20 144/77 (99) 100 08/09/19 16:00 T-piece T-piece 08/09/19 16:00 30 08/09/19 16:00 55 08/09/19 14:53 63 20 30 08/09/19 12:45 56 15 30 08/09/19 12:00 T-piece T-piece 08/09/19 12:00 97.4 58 20 130/66 (87) 100 08/09/19 12:00 55 08/09/19 12:00 30 08/09/19 11:06 66 21 30 Height (Feet): 5 Height (Inches): 7.00 Weight (Pounds): 176 General Appearance: no acute distress HEENT: mucous membranes moist Respiratory/Chest: lungs clear, other - on ventilator Cardiovascular: bradycardia Abdomen: soft, non tender, other - GT feeding Extremities: no edema Neurologic/Psychiatric: alert, responsive Laboratory Tests Test 08/10/19 03:40 White Blood Count 4.8 K/UL (4.8-10.8) Red Blood Count 3.69 M/UL (4.70-6.10) L Hemoglobin 11.8 G/DL (14.2-18.0) L Hematocrit 33.8 % (42.0-52.0) L Mean Corpuscular Volume 91 FL (80-99) Mean Corpuscular Hemoglobin 32.0 PG (27.0-31.0) H Mean Corpuscular Hemoglobin Concent 35.0 G/DL (32.0-36.0) Red Cell Distribution Width 10.6 % (11.6-14.8) L Platelet Count 252 K/UL (150-450) Mean Platelet Volume 7.9 FL (6.5-10.1) Neutrophils (%) (Auto) 54.1 % (45.0-75.0) Lymphocytes (%) (Auto) 28.7 % (20.0-45.0) Monocytes (%) (Auto) 9.5 % (1.0-10.0) Eosinophils (%) (Auto) 6.3 % (0.0-3.0) H Basophils (%) (Auto) 1.6 % (0.0-2.0) Sodium Level 144 MMOL/L (136-145) Potassium Level 3.5 MMOL/L (3.5-5.1) Chloride Level 110 MMOL/L (98-107) H Carbon Dioxide Level 26 MMOL/L (21-32) Anion Gap 9 mmol/L (5-15) Blood Urea Nitrogen 13 mg/dL (7-18) Creatinine 0.7 MG/DL (0.55-1.30) Estimat Glomerular Filtration Rate > 60 mL/min (>60) Glucose Level 100 MG/DL (74-106) Uric Acid 1.9 MG/DL (2.6-7.2) L Calcium Level 8.9 MG/DL (8.5-10.1) Phosphorus Level 2.9 MG/DL (2.5-4.9) Magnesium Level 2.0 MG/DL (1.8-2.4) Total Bilirubin 0.3 MG/DL (0.2-1.0) Aspartate Amino Transf (AST/SGOT) 29 U/L (15-37) Alanine Aminotransferase (ALT/SGPT) 40 U/L (12-78) Alkaline Phosphatase 98 U/L (46-116) Total Protein 7.7 G/DL (6.4-8.2) Albumin 3.0 G/DL (3.4-5.0) L Globulin 4.7 g/dL Albumin/Globulin Ratio 0.6 (1.0-2.7) L Hepatitis A IgM Antibody Pending Hepatitis B Surface Antigen Pending Hepatitis B Core IgM Antibody Pending Hepatitis C Antibody Pending HIV (1&2) Antibody Rapid Negative (NEGATIVE) Current Medications Medications (Trade) Dose Ordered Sig/Scott Route PRN Reason Start Time Stop Time Status Last Admin Dose Admin Albuterol Sulfate (Proventil) 2.5 mg Q6H PRN HHN Shortness of Breath 08/05/19 19:00 08/10/19 18:59 Amlodipine Besylate (Norvasc) 2.5 mg DAILY GT 08/08/19 09:00 09/04/19 18:59 08/10/19 09:47 Carvedilol (Coreg) 3.125 mg EVERY 12 HOURS GT 08/08/19 09:00 09/07/19 08:59 08/10/19 09:47 Ceftriaxone Sodium 2 gm/ Dextrose 55 ml @ 110 mls/hr Q24H IVPB 08/06/19 13:00 08/13/19 12:59 08/09/19 12:34 Docusate Sodium (Colace) 100 mg TID GT 08/07/19 13:00 09/05/19 08:59 08/10/19 09:46 Famotidine (Pepcid) 20 mg BID GT 08/07/19 18:00 09/05/19 08:59 08/10/19 09:47 Heparin Sodium (Porcine) (Heparin 5000 units/ml) 5,000 units EVERY 12 HOURS SUBQ 08/07/19 09:30 09/06/19 09:29 08/10/19 09:49 Levetiracetam (Keppra) 500 mg EVERY 12 HOURS GT 08/05/19 21:00 09/04/19 20:59 08/10/19 09:46 Lisinopril (ZestriL) 2.5 mg DAILY GT 08/09/19 09:00 09/05/19 08:59 08/10/19 09:47 Multivitamins (Multivitamins W/ Minerals 15ml Liquid) 15 ml DAILY GT 08/06/19 09:00 09/05/19 08:59 08/10/19 09:46 Con Huff MD Aug 10, 2019 10:40
[2019-08-10 11:55] VITALS: BP 159/75
--- NOTE | 2019-08-10 11:57 | NUR ---
RD ASSESSMENT & RECOMMENDATIONS SEE CARE ACTIVITY FOR COMPLETE ASSESSMENT DAILY ESTIMATED NEEDS: Needs based on Critical care 70.5kg adj 22-28 kcals/kg 7973-2123 total kcals 1.2-2 g protein/kg 85-141 g total protein 25-30 mL/kg 6399-1046 total fluid mLs NUTRITION DIAGNOSIS: Swallowing difficulty r/t resp status as evidenced by pt is vent dep via trach, PEG dep. CURRENT TF:Jevity 1.2 @45ml/hr ENTERAL NUTRITION RECOMMENDATIONS: REC TO INCREASE CURRENT FEED TO -> Jevity 1.2 @60ml/hr x24 hrs to provide 1440ml, 1728 kcal, 80g pro, 1162ml free H2O - As tolerated rec to increase current to TF to goal of 60ml/hr x24 hrs - Add PROSOURCE 1 PACK DAILY (11g pro) to better meet est pro needs. - Flush per MD. HOB over 30 degrees ADDITIONAL RECOMMENDATIONS: 1) Monitor BG w/ increased TF rate 2) Lytes daily, replete as needed 3) Maintain calibrated bed scale wts for TF efficacy
--- NOTE | 2019-08-10 12:09 | NUR ---
*-* DISCHARGE PLANNING *-* PATIENT HAS BEEN REFERRED BACK TO: [facility] P; [phone] F: [phone]
[2019-08-10] MEDS: cefTRIAXone 2 GM in D5W 55 ML IVPB SCH (12:15)
--- NOTE | 2019-08-10 12:30 | NUR ---
NURSE NOTES: vital signs stable, no SOB, no co pain, bed bath given, repositioned, continue monitoring.
--- NOTE | 2019-08-10 15:59 | Pulmonology Progress Note ---
Assessment/Plan Assessment/Plan IMPRESSION: 1. Pneumonia, left lung base. 2. Chronic trach. 3. Chronic vent dependent. DISCUSSION: Continue broad-spectrum antibiotics including Rocephin. I will follow as hyperion administrator. Continue trach and vent. I have adjust vent settings as needed. Suggest dc planning back to subacute Domingo Barros M.D. Subjective Interval Events: None new Constitutional: Reports: no symptoms HEENT: Repors: no symptoms Respiratory: Reports: no symptoms Cardiovascular: Reports: no symptoms Gastrointestinal/Abdominal: Reports: no symptoms Allergies: Coded Allergies: No Known Allergies (Unverified , 08/05/19) Objective Last 24 Hour Vital Signs Date Time Temp Pulse Resp B/P (MAP) Pulse Ox O2 Delivery O2 Flow Rate FiO2 08/10/19 15:00 50 14 30 08/10/19 13:00 57 16 30 08/10/19 12:00 30 08/10/19 12:00 Mechanical Ventilator Mechanical Ventilator 08/10/19 12:00 51 08/10/19 11:55 96.3 59 14 159/75 (103) 100 08/10/19 11:22 56 15 30 08/10/19 09:47 136/98 08/10/19 09:47 60 136/98 08/10/19 09:47 60 136/98 08/10/19 09:00 55 14 30 08/10/19 08:00 53 08/10/19 08:00 Mechanical Ventilator Mechanical Ventilator 08/10/19 08:00 30 08/10/19 08:00 97.7 60 15 136/98 (111) 100 08/10/19 07:00 52 14 30 08/10/19 05:14 54 14 30 08/10/19 04:00 30 08/10/19 04:00 98.3 67 22 135/82 (99) 99 08/10/19 04:00 78 08/10/19 04:00 Mechanical Ventilator Mechanical Ventilator 08/10/19 03:30 61 15 30 08/10/19 01:30 62 20 30 08/10/19 00:00 61 08/10/19 00:00 30 08/10/19 00:00 Mechanical Ventilator Mechanical Ventilator 08/10/19 00:00 97.6 61 21 139/92 (108) 99 08/09/19 23:30 66 19 30 08/09/19 21:30 60 20 30 08/09/19 20:55 66 134/91 08/09/19 20:00 61 08/09/19 20:00 T-piece Mechanical Ventilator 08/09/19 20:00 66 20 134/91 (105) 99 08/09/19 20:00 30 08/09/19 19:30 62 21 30 08/09/19 17:16 59 17 30 08/09/19 16:00 97.9 57 20 144/77 (99) 100 08/09/19 16:00 T-piece T-piece 08/09/19 16:00 30 08/09/19 16:00 55 Intake and Output 08/09/19 08/10/19 19:00 07:00 Intake Total 1200 ml 840 ml Output Total 700 ml 500 ml Balance 500 ml 340 ml Intake Free Water 300 ml 300 ml IV Total 360 ml Tube Feeding 540 ml 540 ml Output Urine Total 700 ml 500 ml # Voids 2 # Bowel Movements 1 2 General Appearance: no acute distress HEENT: normocephalic, status post trach Respiratory/Chest: chest wall non-tender, lungs clear Cardiovascular: normal peripheral pulses Abdomen: normal bowel sounds Laboratory Tests 08/10/19 03:40: White Blood Count 4.8, Red Blood Count 3.69L, Hemoglobin 11.8L, Hematocrit 33.8L , Mean Corpuscular Volume 91, Mean Corpuscular Hemoglobin 32.0H, Mean Corpuscular Hemoglobin Concent 35.0, Red Cell Distribution Width 10.6L, Platelet Count 252, Mean Platelet Volume 7.9, Neutrophils (%) (Auto) 54.1, Lymphocytes (%) (Auto) 28.7, Monocytes (%) (Auto) 9.5, Eosinophils (%) (Auto) 6.3H, Basophils (%) (Auto) 1.6, Sodium Level 144, Potassium Level 3.5, Chloride Level 110H, Carbon Dioxide Level 26, Anion Gap 9, Blood Urea Nitrogen 13, Creatinine 0.7, Estimat Glomerular Filtration Rate > 60, Glucose Level 100, Uric Acid 1.9L, Calcium Level 8.9, Phosphorus Level 2.9, Magnesium Level 2.0, Total Bilirubin 0.3, Aspartate Amino Transf (AST/SGOT) 29, Alanine Aminotransferase (ALT/SGPT) 40, Alkaline Phosphatase 98, Total Protein 7.7, Albumin 3.0L, Globulin 4.7, Albumin/Globulin Ratio 0.6L, Hepatitis A IgM Antibody [Pending], Hepatitis B Surface Antigen [Pending], Hepatitis B Core IgM Antibody [Pending], Hepatitis C Antibody [Pending], HIV (1&2) Antibody Rapid Negative Current Medications Medications (Trade) Dose Ordered Sig/Scott Route PRN Reason Start Time Stop Time Status Last Admin Dose Admin Albuterol Sulfate (Proventil) 2.5 mg Q6H PRN HHN Shortness of Breath 08/05/19 19:00 08/10/19 18:59 Amlodipine Besylate (Norvasc) 2.5 mg DAILY GT 08/08/19 09:00 09/04/19 18:59 08/10/19 09:47 Ceftriaxone Sodium 2 gm/ Dextrose 55 ml @ 110 mls/hr Q24H IVPB 08/06/19 13:00 08/13/19 12:59 08/10/19 12:15 Docusate Sodium (Colace) 100 mg TID GT 08/07/19 13:00 09/05/19 08:59 08/10/19 12:15 Famotidine (Pepcid) 20 mg BID GT 08/07/19 18:00 09/05/19 08:59 08/10/19 09:47 Heparin Sodium (Porcine) (Heparin 5000 units/ml) 5,000 units EVERY 12 HOURS SUBQ 08/07/19 09:30 09/06/19 09:29 08/10/19 09:49 Levetiracetam (Keppra) 500 mg EVERY 12 HOURS GT 08/05/19 21:00 09/04/19 20:59 08/10/19 09:46 Lisinopril (ZestriL) 2.5 mg Q12HR GT 08/10/19 21:00 09/09/19 20:59 Multivitamins (Multivitamins W/ Minerals 15ml Liquid) 15 ml DAILY GT 08/06/19 09:00 09/05/19 08:59 08/10/19 09:46 Domingo Barros MD Aug 10, 2019 15:59
[2019-08-10 16:00] VITALS: BP 144/85
[2019-08-10] MEDS ORDERED: Tubing IV Secondary IV ONE (18:14)
--- NOTE | 2019-08-10 18:38 | General Progress Note ---
Assessment/Plan Problem List: (1) Abnormal laboratory test result ICD Codes: R89.9 - Unspecified abnormal finding in specimens from other organs , systems and tissues SNOMED: 689773064 (2) UTI (urinary tract infection) ICD Codes: N39.0 - Urinary tract infection, site not specified SNOMED: 85008316 Status: progressing Assessment/Plan: afebrile dc to snf see dc summary for details Subjective ROS Limited/Unobtainable: Yes Allergies: Coded Allergies: No Known Allergies (Unverified , 08/05/19) Objective Last 24 Hour Vital Signs Date Time Temp Pulse Resp B/P (MAP) Pulse Ox O2 Delivery O2 Flow Rate FiO2 08/10/19 16:57 84 26 30 08/10/19 16:00 30 08/10/19 16:00 65 08/10/19 16:00 97.7 71 26 144/85 (104) 98 08/10/19 16:00 Mechanical Ventilator Mechanical Ventilator 08/10/19 15:00 50 14 30 08/10/19 13:00 57 16 30 08/10/19 12:00 30 08/10/19 12:00 Mechanical Ventilator Mechanical Ventilator 08/10/19 12:00 51 08/10/19 11:55 96.3 59 14 159/75 (103) 100 08/10/19 11:22 56 15 30 08/10/19 09:47 136/98 08/10/19 09:47 60 136/98 08/10/19 09:47 60 136/98 08/10/19 09:00 55 14 30 08/10/19 08:00 53 08/10/19 08:00 Mechanical Ventilator Mechanical Ventilator 08/10/19 08:00 30 08/10/19 08:00 97.7 60 15 136/98 (111) 100 08/10/19 07:00 52 14 30 08/10/19 05:14 54 14 30 08/10/19 04:00 30 08/10/19 04:00 98.3 67 22 135/82 (99) 99 08/10/19 04:00 78 08/10/19 04:00 Mechanical Ventilator Mechanical Ventilator 08/10/19 03:30 61 15 30 08/10/19 01:30 62 20 30 08/10/19 00:00 61 08/10/19 00:00 30 08/10/19 00:00 Mechanical Ventilator Mechanical Ventilator 08/10/19 00:00 97.6 61 21 139/92 (108) 99 08/09/19 23:30 66 19 30 08/09/19 21:30 60 20 30 08/09/19 20:55 66 134/91 08/09/19 20:00 61 08/09/19 20:00 T-piece Mechanical Ventilator 08/09/19 20:00 66 20 134/91 (105) 99 08/09/19 20:00 30 08/09/19 19:30 62 21 30 Intake and Output 08/09/19 08/10/19 19:00 07:00 Intake Total 1200 ml 840 ml Output Total 700 ml 500 ml Balance 500 ml 340 ml Intake Free Water 300 ml 300 ml IV Total 360 ml Tube Feeding 540 ml 540 ml Output Urine Total 700 ml 500 ml # Voids 2 # Bowel Movements 1 2 Laboratory Tests 08/10/19 03:40: White Blood Count 4.8, Red Blood Count 3.69L, Hemoglobin 11.8L, Hematocrit 33.8L , Mean Corpuscular Volume 91, Mean Corpuscular Hemoglobin 32.0H, Mean Corpuscular Hemoglobin Concent 35.0, Red Cell Distribution Width 10.6L, Platelet Count 252, Mean Platelet Volume 7.9, Neutrophils (%) (Auto) 54.1, Lymphocytes (%) (Auto) 28.7, Monocytes (%) (Auto) 9.5, Eosinophils (%) (Auto) 6.3H, Basophils (%) (Auto) 1.6, Sodium Level 144, Potassium Level 3.5, Chloride Level 110H, Carbon Dioxide Level 26, Anion Gap 9, Blood Urea Nitrogen 13, Creatinine 0.7, Estimat Glomerular Filtration Rate > 60, Glucose Level 100, Uric Acid 1.9L, Calcium Level 8.9, Phosphorus Level 2.9, Magnesium Level 2.0, Total Bilirubin 0.3, Aspartate Amino Transf (AST/SGOT) 29, Alanine Aminotransferase (ALT/SGPT) 40, Alkaline Phosphatase 98, Total Protein 7.7, Albumin 3.0L, Globulin 4.7, Albumin/Globulin Ratio 0.6L, Hepatitis A IgM Antibody [Pending], Hepatitis B Surface Antigen [Pending], Hepatitis B Core IgM Antibody [Pending], Hepatitis C Antibody [Pending], HIV (1&2) Antibody Rapid Negative Height (Feet): 5 Height (Inches): 7.00 Weight (Pounds): 176 Dante Awan MD Aug 10, 2019 18:38
--- NOTE | 2019-08-10 18:44 | NUR ---
NURSE NOTES: pt discharge to as ordered by ambulance, condition stable, report given to ANSHU RN, family notified by [employer].
--- NOTE | 2019-08-10 19:19 | Hematology/Onc Progress Note ---
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 --> in the past received anticoagulation --> given this is an old blood clot, withold new treatment --> repeat in 3 months to make sure has resolved # Thrombocytopenia - potential causes multifactorial, evaluate liver and viral etiologies to begin, also could be related to underlying medications patient has received. --> Hep panel and HIV ordered --> US abd to evaluate for cirrhosis and hsm ordered --> no hsm or cirrhosis is noted --> Peripheral smear ordered to evaluate for blasts /schistocytes --> abx and other meds have been reviewed --> ok for ppx if plt >50k w/ either heparin or lovenox --> Transfuse if Plt < 20k and fever, or if Plt < 10k without fever # Anemia of chronic disease due to underlying chronic medical issues, multifactorial v Gi bleed --> Anemia workup has been ordered, rule out gi bleed --> No evidence of hemolysis is noted, peripheral smear has been reviewed. --> Hgb goal >7. Transfuse prn. --> Epogen or iron at this time is not particularly indicated --> Medications have been reviewed --> low threshold for gi evaluation in case has occult + # Uti is improving --> continue on ctx --> monitor for improvement # Borderline k --> as per renal # Respiratory failure s/p trach --> per pulm # Dysphagia s/p peg Appreciate consultation and ryan Rn Subjective Allergies: Coded Allergies: No Known Allergies (Unverified , 08/05/19) Subjective 08/09: no major changes, is nonverbal, on ctx, recs reviewed from consultants\ 08/10: confused, vent, no acute distress, dc to snf pending Objective Objective Last 24 Hour Vital Signs Date Time Temp Pulse Resp B/P (MAP) Pulse Ox O2 Delivery O2 Flow Rate FiO2 08/10/19 16:57 84 26 30 08/10/19 16:00 30 08/10/19 16:00 65 08/10/19 16:00 97.7 71 26 144/85 (104) 98 08/10/19 16:00 Mechanical Ventilator Mechanical Ventilator 08/10/19 15:00 50 14 30 08/10/19 13:00 57 16 30 08/10/19 12:00 30 2/10/20 12:00 Mechanical Ventilator Mechanical Ventilator 08/10/19 12:00 51 08/10/19 11:55 96.3 59 14 159/75 (103) 100 08/10/19 11:22 56 15 30 08/10/19 09:47 136/98 08/10/19 09:47 60 136/98 08/10/19 09:47 60 136/98 08/10/19 09:00 55 14 30 08/10/19 08:00 53 08/10/19 08:00 Mechanical Ventilator Mechanical Ventilator 08/10/19 08:00 30 08/10/19 08:00 97.7 60 15 136/98 (111) 100 08/10/19 07:00 52 14 30 08/10/19 05:14 54 14 30 08/10/19 04:00 30 08/10/19 04:00 98.3 67 22 135/82 (99) 99 08/10/19 04:00 78 08/10/19 04:00 Mechanical Ventilator Mechanical Ventilator 08/10/19 03:30 61 15 30 08/10/19 01:30 62 20 30 08/10/19 00:00 61 08/10/19 00:00 30 08/10/19 00:00 Mechanical Ventilator Mechanical Ventilator 08/10/19 00:00 97.6 61 21 139/92 (108) 99 08/09/19 23:30 66 19 30 08/09/19 21:30 60 20 30 08/09/19 20:55 66 134/91 08/09/19 20:00 61 08/09/19 20:00 T-piece Mechanical Ventilator 08/09/19 20:00 66 20 134/91 (105) 99 08/09/19 20:00 30 08/09/19 19:30 62 21 30 08/09/19 17:16 59 17 30 08/09/19 16:00 97.9 57 20 144/77 (99) 100 08/09/19 16:00 T-piece T-piece 08/09/19 16:00 30 08/09/19 16:00 55 08/09/19 14:53 63 20 30 08/09/19 12:45 56 15 30 08/09/19 12:00 T-piece T-piece 08/09/19 12:00 97.4 58 20 130/66 (87) 100 08/09/19 12:00 55 08/09/19 12:00 30 08/09/19 11:06 66 21 30 08/09/19 08:57 144/68 08/09/19 08:57 53 144/68 08/09/19 08:50 53 144/68 08/09/19 08:49 54 20 30 08/09/19 08:00 98.9 53 22 144/68 (93) 100 08/09/19 08:00 T-piece T-piece 08/09/19 08:00 30 08/09/19 07:20 57 14 30 08/09/19 05:24 55 16 30 08/09/19 04:00 57 08/09/19 04:00 T-piece T-piece 08/09/19 04:00 30 08/09/19 04:00 97.7 58 22 129/58 (81) 100 08/09/19 03:05 66 14 30 08/09/19 01:44 60 14 30 08/09/19 00:00 55 08/09/19 00:00 T-piece T-piece 08/08/19 23:03 53 17 30 08/08/19 21:25 63 17 30 08/08/19 21:19 63 120/97 08/08/19 20:00 30 08/08/19 20:00 97.2 63 20 120/97 (105) 99 08/08/19 20:00 T-piece T-piece 08/08/19 20:00 64 08/08/19 19:24 66 16 30 Intake and Output 08/09/19 08/10/19 19:00 07:00 Intake Total 1200 ml 840 ml Output Total 700 ml 500 ml Balance 500 ml 340 ml Intake Free Water 300 ml 300 ml IV Total 360 ml Tube Feeding 540 ml 540 ml Output Urine Total 700 ml 500 ml # Voids 2 # Bowel Movements 1 2 Labs Test 08/08/19 03:50 08/10/19 03:40 White Blood Count 4.4 K/UL (4.8-10.8) 4.8 K/UL (4.8-10.8) Red Blood Count 3.30 M/UL (4.70-6.10) 3.69 M/UL (4.70-6.10) Hemoglobin 10.7 G/DL (14.2-18.0) 11.8 G/DL (14.2-18.0) Hematocrit 30.6 % (42.0-52.0) 33.8 % (42.0-52.0) Mean Corpuscular Volume 93 FL (80-99) 91 FL (80-99) Mean Corpuscular Hemoglobin 32.5 PG (27.0-31.0) 32.0 PG (27.0-31.0) Mean Corpuscular Hemoglobin Concent 35.1 G/DL (32.0-36.0) 35.0 G/DL (32.0-36.0) Red Cell Distribution Width 11.4 % (11.6-14.8) 10.6 % (11.6-14.8) Platelet Count 209 K/UL (150-450) 252 K/UL (150-450) Mean Platelet Volume 7.7 FL (6.5-10.1) 7.9 FL (6.5-10.1) Neutrophils (%) (Auto) 50.9 % (45.0-75.0) 54.1 % (45.0-75.0) Lymphocytes (%) (Auto) 30.0 % (20.0-45.0) 28.7 % (20.0-45.0) Monocytes (%) (Auto) 12.6 % (1.0-10.0) 9.5 % (1.0-10.0) Eosinophils (%) (Auto) 4.8 % (0.0-3.0) 6.3 % (0.0-3.0) Basophils (%) (Auto) 1.7 % (0.0-2.0) 1.6 % (0.0-2.0) Sodium Level 146 MMOL/L (136-145) 144 MMOL/L (136-145) Potassium Level 3.6 MMOL/L (3.5-5.1) 3.5 MMOL/L (3.5-5.1) Chloride Level 113 MMOL/L (98-107) 110 MMOL/L (98-107) Carbon Dioxide Level 26 MMOL/L (21-32) 26 MMOL/L (21-32) Anion Gap 7 mmol/L (5-15) 9 mmol/L (5-15) Blood Urea Nitrogen 20 mg/dL (7-18) 13 mg/dL (7-18) Creatinine 0.8 MG/DL (0.55-1.30) 0.7 MG/DL (0.55-1.30) Estimat Glomerular Filtration Rate > 60 mL/min (>60) > 60 mL/min (>60) Glucose Level 103 MG/DL (74-106) 100 MG/DL (74-106) Hemoglobin A1c 4.9 % (4.3-6.0) Uric Acid 3.1 MG/DL (2.6-7.2) 1.9 MG/DL (2.6-7.2) Calcium Level 8.6 MG/DL (8.5-10.1) 8.9 MG/DL (8.5-10.1) Phosphorus Level 2.9 MG/DL (2.5-4.9) 2.9 MG/DL (2.5-4.9) Magnesium Level 2.1 MG/DL (1.8-2.4) 2.0 MG/DL (1.8-2.4) Iron Level 104 ug/dL (50-175) Total Iron Binding Capacity 211 ug/dL (250-450) Percent Iron Saturation 49 % (15-50) Unsaturated Iron Binding 107 ug/dL (112-346) Ferritin 122 NG/ML (8-388) Total Bilirubin 0.3 MG/DL (0.2-1.0) 0.3 MG/DL (0.2-1.0) Aspartate Amino Transf (AST/SGOT) 18 U/L (15-37) 29 U/L (15-37) Alanine Aminotransferase (ALT/SGPT) 26 U/L (12-78) 40 U/L (12-78) Alkaline Phosphatase 80 U/L (46-116) 98 U/L (46-116) Troponin I 0.007 ng/mL (0.000-0.056) C-Reactive Protein, Quantitative 1.0 mg/dL (0.00-0.90) Pro-B-Type Natriuretic Peptide 89 pg/mL (0-125) Total Protein 7.0 G/DL (6.4-8.2) 7.7 G/DL (6.4-8.2) Albumin 2.7 G/DL (3.4-5.0) 3.0 G/DL (3.4-5.0) Globulin 4.3 g/dL 4.7 g/dL Albumin/Globulin Ratio 0.6 (1.0-2.7) 0.6 (1.0-2.7) Triglycerides Level 73 MG/DL (30-150) Cholesterol Level 88 MG/DL (< 200) LDL Cholesterol 56 mg/dL (<100) HDL Cholesterol 24 MG/DL (40-60) Cholesterol/HDL Ratio 3.7 (3.3-4.4) Vitamin B12 Level 826 PG/ML (193-986) Folate 27.4 NG/ML (8.6-58.9) Thyroid Stimulating Hormone (TSH) 0.567 uiU/mL (0.358-3.740) HIV (1&2) Antibody Rapid Negative (NEGATIVE) Height (Feet): 5 Height (Inches): 7.00 Weight (Pounds): 176 Objective gen: nonverbal, altered pulm: ctab, no cwr, on trach/vent cv: rrr, no mgr abd: soft, s/p peg, mild abd pain, GT+ ext: no cce neuro: s/p stroke Kp Gallego MD Aug 10, 2019 19:19
[2019-08-10] MEDS ORDERED: Lisinopril 2.5mg tab GT SCH (21:00)
--- NOTE | 2019-08-11 12:07 | Discharge Summary ---
Discharge Summary Discharge Summary _ DATE OF ADMISSION: 20/11/2019 DATE OF DISCHARGE: 08/10/2019 DISCHARGED BY: Dr. Awan REASON FOR ADMISSION: 69 years old male with past medical history of chronic respiratory failure, ventilator dependent, with tracheostomy status, kidney failure, dysphagia, feeding by G-tube, hypertension, GERD, was sent for evaluation due to abnormal labs. Laboratory work-up revealed no leukocytosis, hemoglobin 13, hematocrit 36.7. Stable electrolytes and renal parameters. Troponin negative. Urinalysis revealed evidence of urinary tract infection, +2 protein. Chest x-ray demonstrated parenchymal disease in the left lung base, likely infiltrate versus atelectasis. Mild pulmonary vascular congestion. Mild basilar atelectasis. Chilaiditi syndrome. osteoporosis , tracheostomy in place. Patient subsequently admitted for further management CONSULTANTS: pulmonary Dr. Barros ID specialist Dr. Huff chicken tender Dr. Chung net developer/oncologist Dr. Gallego [facility] COURSE: Patient admitted to direct observational unit. Patient started on antibiotic as per ID specialist recommendation. Ventilator support and tracheostomy care provided. Pulmonary hygiene provided . Urine culture revealed Proteus mirabilis. Antibiotic regimen optimized as per ID recommendation . Patient was treated for UTI and pneumonia. Critical Care Transport Nurse followed. And renal parameters electrolytes were closely monitored. Nephrotoxic's were avoided. Potassium replaced ,magnesium stable. Prior to discharge stable renal parameters and all electrolytes. Patient was hydrated. Blood pressure noted to be low. Antihypertensive regimen was optimized, doses were down titrated. Blood pressure improved. GI prophylaxis provided. Abdominal ultrasound revealed no acute findings. Venous duplex bilateral lower extremity revealed no evidence of acute DVT. Mild nonocclusive chronic wall adherent thrombus within the left SFV/ old DVT. Patient received anticoagulation in the past . No need for anticoagulation. Repeat ultrasound in 3 months to make sure that it resolved. Hemoglobin and hematocrit were closely monitored with goal to keep hemoglobin above 7, prior to discharge hemoglobin 11.8, hematocrit 33.8. Anemia work-up was consistent with anemia of chronic disease. Stable folate and B12 level. TSH within normal limits. Strict aspiration precaution maintained. G-tube feeding continued. Supportive care provided. Patient clinically stabilized and was [facility] of care. 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 DISCHARGE INSTRUCTIONS: [facility] was [facility] to the [facility] facility. Follow up with medical doctor at the facility. I have been assigned to dictate discharge summary for this account. I was not involved in the patient's management. Allie Espinoza NP Aug 11, 2019 12:07
== END 2019-08-10 18:15 | DRG 208 ==
LOC: EDBD 11:37 → EMR 12:10 → 2W 13:12 → EDBEDREQ 13:59 → 2W 08-07 22:05
PROC: 5A1945Z Respiratory Ventilation, 24-96 Consecutive Hours (ICD-10-PCS; principal; 2019-08-05)
DX: J18.9 Pneumonia, unspecified organism (principal); J96.90 Respiratory failure, unspecified, unspecified whether with hypoxia or hypercapnia; N39.0 Urinary tract infection, site not specified; J96.10 Chronic respiratory failure, unspecified whether with hypoxia or hypercapnia; Z43.1 Encounter for attention to gastrostomy; Z99.11 Dependence on respirator [ventilator] status; I69.359 Hemiplegia and hemiparesis following cerebral infarction affecting unspecified side; I82.512 Chronic embolism and thrombosis of left femoral vein; K21.9 Gastro-esophageal reflux disease without esophagitis; B96.4 Proteus (mirabilis) (morganii) as the cause of diseases classified elsewhere; Z43.0 Encounter for attention to tracheostomy; D64.9 Anemia, unspecified; I95.9 Hypotension, unspecified; D63.8 Anemia in other chronic diseases classified elsewhere; G40.909 Epilepsy, unspecified, not intractable, without status epilepticus; K76.0 Fatty (change of) liver, not elsewhere classified; R13.10 Dysphagia, unspecified; D69.6 Thrombocytopenia, unspecified
CPT/HCPCS: 36415; 71045; 76705; 80048; 80053; 80061; 81003; 82607; 82728; 82746; 82962; 83036; 83540; 83550; 83690; 83735; 83880; 84100; 84443; 84484; 84550; 85025; 85610; 85730; 86140; 86703; 86705; 86709; 86803; 87081; 87086; 87181; 87340; 93005; 93970; 94002; 94003; 94664; 96365; 99285; J8499